=== PATIENT | female | born 1990 | race Caucasian/White ===

== ENCOUNTER 2019-07-19 11:22 | Outpatient (CLI) | payer MEDICAID, SELFPAY ==
--- NOTE | 2019-07-19 | US_ITS ---
WS: [id number] OB ultrasound, 07/19/2019 Clinical Data: SUBSEQUENT IN SECOND TRIMESTER Comparison: OB ultrasound, 05/10/2019. Findings: There is a single intrauterine in the vertex presentation and moved from a transverse lie.. The placenta is Anterior and grade 1. There is a normal amount of amnionic fluid measuring 15.96 cm. . The heart rate is 141 beats per minute. Measurements of growth and development: BPD: 7.6 cm HC: 27.7 cm AC: 27.0 cm FL: 5.9 cm The estimated weight is 1644 g or approximately 3 lbs. 10 oz. The estimated gestational age is 30 weeks 4 days with an CAROLYN of approximately 09/23/2019.. anatomy shows no cyst of the choroid plexus which was seen on the left lateral ventricle on the previous exam. US/[place] [id number] Impression: 1. Single intrauterine in vertex presentation. 2. Estimated gestational age 30 weeks 4 days with an CAROLYN of 09/23/2019. 3. heart rate 141 beats per minute.
== END 2019-07-19 11:23 | disposition home or self-care (01) ==
LOC: RADOUTREAD 07-20 07:14
PROVIDERS: Family Provider Nurse Practitioner Family; Visit Provider Family Medicine
DX: Z34.82 Encounter for supervision of other normal pregnancy, second trimester (principal)

== ENCOUNTER 2019-08-26 06:51 | Inpatient (IN) | payer MEDICAID, SELFPAY ==
[2019-08-26] VITALS (27 sets, daily range): BP systolic 122–186; BP diastolic 65–102; PULSE 65–105; RESP 16–20; TEMP 36.6–37.1; O2SAT 96–100; BMI 41.3
--- NOTE | 2019-08-26 07:40 | ANES.PREANE2 ---
Pre-Anesthetic Assessment Pre-Anesthetic Assessment: Height/Weight: Height 1.6 m Weight 105.687 kg Pulse BP 98 158/93 08/26/19 07:34 08/26/19 07:34 Preop Diagnosis: Breach presentation Proposed Procedure: C section Familial anesthetic complications: Mom slow to wake up Was Beta Froy taken within 24 hours: N/A Last Intake: 22:00 Social: Social History: Tobacco and No alcohol Packs per day: 1/2 ppd Pack years: 15 Exam: Pre-Anes Outpt Exam: alert, oriented x 3, clear to auscultation bilaterally and regular rate & rhythm Airway: Submandibular: WNL Cervical ROM: WNL MP: 1 Dentition: False and Other (tongue removed) Pulmonary: Pulmonary: Sleep apnea (CPAP) CV/HEM: CV/HEM: None reported : : None reported Hepatic: Hepatic: None reported GI: GI: GERD Comments: with Metabolic: Metabolic: Morbid obesity Musc/skel: Musc/skel: None reported Neuropsych: Neuropsych: GAUTHIER Anesthetic Plan: ASA status: 2 Anesthesia: Anesthesia Evaluation and Regional (specify below) (SAB) Risk of > 500 ml blood loss (7ml/kg in children): Yes, adequate IV access and fluids planned PFSH Anesthesia Female Reproductive History: : 3 Data Anesthesia Cardiac Studies: No Data to Display
--- NOTE | 2019-08-26 07:42 | PM.OBGYHP ---
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 Her has been unremarkable overall. She does have a history of a previous lower transverse section due to breech position. Present Details : 3 Para: 2 Review of Systems General: Reports: 10 or more systems reviewed and unremarkable except in HPI and below Const: Reports: fatigue; Denies: fever Eyes: Denies: change in vision Card: Denies: chest pain Musc: Reports: back pain Juan Carlos/Lymph: Denies: easy bruising Medications/Allergies Home Medications Medication Instructions Recorded Confirmed Last Taken Type PNV cmb#95-ferrous fumarate-FA 1 tab PO DAILY 08/26/19 08/26/19 08/25/19 08:00 History [] Allergies Allergy/AdvReac Type Severity Reaction Status Date / Time codeine Allergy ADR-Halluci Verified 08/26/19 07:12 nating meperidine [From Demerol] Allergy ADR/ALGY-Hy Verified 08/26/19 07:12 potension Vitals/I&O/Wt Last Vital Signs Pulse 98 08/26/19 07:34 BP 158/93 08/26/19 07:34 Weight last 48 hrs Weight 233 lb Physical Exam Const: COMMON NORMALS: oriented x3 and alert HENMT: COMMON NORMALS: moist oral mucous membranes HEAD & SCALP: normal to inspection Chest: COMMONS NORMALS: inspection of chest normal Resp: COMMON NORMALS: clear to auscultation bilaterally AUSCULTATION: clear to auscultation bilaterally Cardio: COMMON NORMALS: regular rate and regular rhythm RATE: regular rate RHYTHM: regular rhythm GI: INSPECTION: Yes normal to inspection and Yes other (Gravid) Extremity: COMMON NORMALS: normal to inspection GENERAL: Yes edema (Trace) Neuro: COMMON NORMALS: oriented x3, moves all extremities and no sensory deficits noted SENSORIUM/ORIENTATION: Yes alert Psych: COMMON NORMALS: mental status grossly normal Skin: COMMON NORMALS: no rashes or lesions noted GENERAL SKIN EXAM: no rashes or lesions noted A&P Assessment and plan (1) Transverse lie of fetus: Status: Acute Code(s): O32.2XX0 - Maternal care for transverse and oblique lie, not applicable or unspecified (2) History of : Status: Acute Code(s): Z98.891 - History of uterine scar from previous surgery (3) 34 weeks gestation of : Due to the transverse lie of the we will proceed with a . I discussed the risks of the including the risk of bleeding, infection, and damage to intra-abdominal organs. Patient acknowledges those risks and wished to proceed. Status: Acute Code(s): Z3A.34 - 34 weeks gestation of Attestations Medical Necessity Statement*: I anticipate routine and post care. Coding Level of Care Code Acute [facility] for [facility] Matt Diagnoses Transverse lie of fetus O32.2XX0 History of Z98.891 34 weeks gestation of Z3A.34
[2019-08-26] MEDS: lactated ringers 1,000 ML 999 ML IV (07:43)
[2019-08-26] MEDS: ampicillin 2,000 MG in sodium chloride 0.9% (plus) 50 ML 100 MG IV (07:50)
[2019-08-26] MEDS: famotidine 20 mg/2 mL INJ IVP (07:53)
[2019-08-26] MEDS: metoclopramide 5 mg/mL SDV 2 mL 10 MG IVP (07:53)
[2019-08-26] MEDS: citric acid-sodium citrate 30 mL UDC PO (07:54)
[2019-08-26 08:01] LABS: Basophils % 0.3 %; Eosinophils # 0.2 10^3/uL (0.0-0.8); Eosinophils % 1.2 %; Hematocrit 37.2 % (37.0-47.0); Hemoglobin 12.6 g/dL (11.5-15.3); Lymphocytes # 2.1 10^3/uL (0.8-4.8); Lymphocytes % 14.7 %; Mean Corpuscular HGB Conc 33.9 g/dL (30.0-36.0); Mean Corpuscular Hemoglobin 29.2 pg (28.0-34.0); Mean Corpuscular Volume 86.1 fL (81-99); Mean Platelet Volume 10.1 fL (7.4-10.4); Monocytes # 0.8 10^3/uL (0.2-0.9); Monocytes % 5.3 %; Neutrophils # 11.3 10^3/uL (1.8-7.7); Neutrophils % 77.7 %; Nucleated Red Blood Cells % 0.2 %; Platelet Count 172 10^3/cmm (130-400); Red Blood Count 4.32 10^6/uL (4.1-5.3); Red Cell Distribution Width 13.2 % (12.1-15.1); White Blood Count 14.5 10^3/uL (4.0-10.0)
[2019-08-26 08:30] LABS: Alanine Aminotransferase 8 U/L (0-33); Alkaline Phosphatase 146 IU/L (35-105); Anion Gap 17.9 (5-19); Aspartate Amino Transferase 14 U/L (0-32); Blood Urea Nitrogen 8 mg/dL (6-20); Calcium 9.7 mg/dL (8.5-10.5); Carbon Dioxide 20 mmol/L (22-29); Chloride 101 mmol/L (98-107); Globulin 3.6 g/dL (1.3-4.6); Glomerular Filtration Rate 117.4 mL/min (90-130); Glucose 92 mg/dL (65-115); Potassium 3.9 mmol/L (3.5-5.1); Sodium 135 mmol/L (136-145); Total Bilirubin 0.2 mg/dL (0.15-1.2); Total Protein 6.6 g/dL (6.6-8.7); Uric Acid 7.2 mg/dL (2.4-5.7)
[2019-08-26 08:52] LABS: Add Urine Microscopic? YES; Bilirubin Urine Neg (NEGATIVE); Blood Urine Trace (Negative); Glucose Urine UA Norm (Normal); Ketones Urine Negative (Negative); Leukocyte Esterase Urine Negative (Negative); Nitrate Urine Negative (Negative); Protein Urine Neg (Negative); Specific Gravity, Urine 1.005 (1.005-1.030); Urine Appearance Clear (CLEAR); Urine Color Yellow (Yellow); Urobilinogen Urine Norm (Negative); pH Urine 5 (5-7)
[2019-08-26 09:01] LABS: Add Urine Culture? No; Bacteria Urine TRACE; RBC Urine 0-4 /hpf (0-2); Squamous Epithelial Cell Urine 0-4 (0-5)
[2019-08-26 09:05] LABS: Urine Creatinine 33 mg/dL (28-217); Urine Protein Random 6 mg/dL
[2019-08-26 09:08] LABS: UPRO/UCREAT Ratio 0.18 mg/mg CR
--- NOTE | 2019-08-26 09:47 | P.OP_ITS ---
Operative Report Date of procedure: August 26, 2019 Pre-op Diagnosis: Transverse presentation Post-op diagnosis: same Procedure Done: Repeat lower transverse section Specimens removed/disposition: Male infant weight 5 pounds 2 ounces Apgars 5 7 and 9 Surgeon: Ritchie Ferreira Anesthesia: Other (Spinal) Estimated blood loss (mL): 400 Condition: stable Disposition: floor (OB) Procedure: The patient was brought back to the operating room where she was prepped and draped in usual sterile fashion. Anesthesia was found to be adequate. A lower transverse skin incision was then made with a #10 blade. I then dissected down to the underlying subcutaneous tissue until arriving at the prerectal fascia. The fascia was then nicked with the scalpel bilaterally. The fascial incisions were then carried laterally with Heath scissors. Attention was then turned to the superior aspect of the incision which was grasped with kochers and tented up away from the underlying rectus abdominis muscles. The muscles were then dissected away from the fascia manually, and later with Heath scissors. Attention was then turned to the inferior aspect of the incision, and the fascia was dissected away from the underlying muscle in similar fashion. The rectus abdominis muscles were then spread manually. The peritoneum was entered manually. Excellent visualization of the uterus was noted. A lower transverse uterine incision was then made with a #10 blade. Upon arriving at the intrauterine cavity, the uterine incision was then extended manually. The was noted to be in vertex position. The baby was delivered without difficulty. After delivery of the head, the mouth and nose were suctioned at the site of the incision. There was no meconium. There was no nuchal cord. The remainder of the body was then delivered and placed on the abdomen. The cord was cut and clamped. The baby was then handed to the waiting nurse. The placenta was removed intact. The uterus was externalized. The intrauterine ca vity was cleansed of any remaining debris. The uterine incision was reapproximated in 2 layers. The first layer was performed with 0 Vicryl in a running locked stitch. The second layer was an imbricating stitch also using 0 Vicryl. The uterus was replaced into the abdomen. The peritoneum was then irrigated with warm saline. I reexamined the uterine incision and found it to be hemostatic. The rectus abdominis muscles were then reapproximated using 0 Vicryl in a running stitch. The fascia was then reapproximated using 0 Vicryl in running stitch. The skin was reapproximated using 4-0 Vicryl in a running subcutaneous stitch. Steri-Strips were placed. A sterile dressing was placed. All counts were correct x2. Both the mother and baby were in stable condition.
[2019-08-26 18:32] LABS: Hematocrit 33.6 % (37.0-47.0); Hemoglobin 11.2 g/dL (11.5-15.3); Mean Corpuscular HGB Conc 33.3 g/dL (30.0-36.0); Mean Corpuscular Hemoglobin 29.3 pg (28.0-34.0); Mean Platelet Volume 10.3 fL (7.4-10.4); Platelet Count 154 10^3/cmm (130-400); Red Blood Count 3.82 10^6/uL (4.1-5.3); Red Cell Distribution Width 13.4 % (12.1-15.1); White Blood Count 18.4 10^3/uL (4.0-10.0)
[2019-08-26] MEDS: lanolin oint 7 gm 1 APPLIC TOPICAL (21:40)
[2019-08-27 03:45] VITALS: BP 123/77; PULSE 84; RESP 15; TEMP 36.7; O2SAT 97
[2019-08-27] MEDS: acetaminophen 325 mg Tablet 650 MG PO (04:14)
--- NOTE | 2019-08-27 06:57 | P.DS_ITS ---
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 The baby was found to be in transverse position. We proceeded with a section. Her course has been unremarkable. Her bleeding has been scant. She has had urine output. She has passed gas. She has had a bowel movement. She has tolerated a regular diet. Information Peripartum Data: Infant Delivery Method: Section Physical Exam Narrative: EXAM NARRATIVE: She is in no acute distress Lungs are clear auscultation bilaterally Her heart has a regular rate and rhythm Her fundus is below the umbilicus and firm Her dressing is clean, dry and intact Her extremities have trace edema Urinary Catheter Management^: Riddle: Cath Placed During This Visit: yes, but has since been removed by the nurse Reason for Continuing Indwelling Catheter: Not indwelling catheter Date Urinary Catheter Removed: 08/26/19 Time Urinary Catheter Discontinued: 16:40 Discharge Data Data Completed and Pending: Labs from last 24 hours 08/26/19 08/26/19 08/26/19 18:05 08:27 08:27 WBC 18.4 H RBC 3.82 L Hgb 11.2 L Hct 33.6 L MCV 88.0 MCH 29.3 MCHC 33.3 RDW 13.4 Plt Count 154 MPV 10.3 Neut % (Auto) Lymph % (Auto) Kenton % (Auto) Eos % (Auto) Baso % (Auto) Neut # (Auto) Lymph # (Auto) Kenton # (Auto) Eos # (Auto) Baso # (Auto) Nucleated RBC % (a uto) Nucleated RBCs # Sodium Potassium Chloride Carbon Dioxide Anion Gap BUN Creatinine GFR Calculation Glucose Uric Acid Calcium Total Bilirubin AST ALT Alkaline Phosphata se Total Protein Albumin Globulin Urine Color Yellow Urine Appearance Clear Urine pH 5 Ur Specific Gravit y 1.005 Urine Protein Neg Urine Glucose (UA) Norm Urine Ketones Negative Urine Occult Blood Trace H Urine Nitrate Negative Urine Bilirubin Neg Urine Urobilinogen Norm Ur Leukocyte Cecilia ase Negative Urine RBC 0-4 H Urine WBC None Ur Squamous Epith Cells 0-4 H Amorphous Sediment Not Reportable Urine Bacteria Trace U Random Total Pro tein 6 Urine Creatinine 33 Protein/Creatinin Ratio 0.18 08/26/19 08/26/19 07:47 07:47 WBC 14.5 H RBC 4.32 Hgb 12.6 Hct 37.2 MCV 86.1 MCH 29.2 MCHC 33.9 RDW 13.2 Plt Count 172 MPV 10.1 Neut % (Auto) 77.7 Lymph % (Auto) 14.7 Kenton % (Auto) 5.3 Eos % (Auto) 1.2 Baso % (Auto) 0.3 Neut # (Auto) 11.3 H Lymph # (Auto) 2.1 Kenton # (Auto) 0.8 Eos # (Auto) 0.2 Baso # (Auto) 0.0 Nucleated RBC % (a uto) 0.2 Nucleated RBCs # 0.0 Sodium 135 L Potassium 3.9 Chloride 101 Carbon Dioxide 20 L Anion Gap 17.9 BUN 8 Creatinine 0.6 GFR Calculation 117.4 Glucose 92 Uric Acid 7.2 H Calcium 9.7 Total Bilirubin 0.2 AST 14 ALT 8 Alkaline Phosphata se 146 H Total Protein 6.6 Albumin 3.0 L Globulin 3.6 Urine Color Urine Appearance Urine pH Ur Specific Gravit y Urine Protein Urine Glucose (UA) Urine Ketones Urine Occult Blood Urine Nitrate Urine Bilirubin Urine Urobilinogen Ur Leukocyte Cecilia ase Urine RBC Urine WBC Ur Squamous Epith Cells Amorphous Sediment Urine Bacteria U Random Total Pro tein Urine Creatinine Protein/Creatinin Ratio Vitals: Last Vital Signs Temp 98.0 F 08/27/19 03:45 Pulse 84 08/27/19 03:45 Resp 15 08/27/19 03:45 BP 123/77 08/27/19 03:45 Pulse Ox 97 08/27/19 03:45 Discharge Plan Discharge Patient Disposition: Home, Self-Care Condition: Stable Prescriptions: New ibuprofen 800 mg Tablet 800 mg PO TID Qty: 30 RF: 0 oxycodone-acetaminophen 5-325 mg Tablet 1 - 2 tab PO Q6H PRN (Reason: Moderate To Severe Pain) Qty: 20 RF: 0 Continued 28 mg iron- 800 mcg Tablet 1 tab PO DAILY RF: 0 Discharge Orders: Discharge Order (Routine); Ordered 08/27/19 Ordered By: Ritchie Ferreira Referrals: Ritchie Ferreira MD [Physician] - 7-10 days Discharge Diet: Regular Discharge Activity: Limit activity as instructed 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
[2019-08-27] MEDS: prenatal vitamin Capsule 1 CAP PO (08:44)
[2019-08-27] MEDS: docusate sodium 100 mg Capsule PO (08:44)
[2019-08-27 10:00] VITALS: BP 138/88; PULSE 106; RESP 18; TEMP 36.9; O2SAT 98
[2019-08-27 11:00] VITALS: BP 110/68; PULSE 100; RESP 18; TEMP 36.8; O2SAT 98
[2019-08-27 11:14] VITALS: BP 110/68; PULSE 100; RESP 18; TEMP 36.8; O2SAT 98
== END 2019-08-27 11:18 | disposition home or self-care (01) | DRG 788 ==
LOC: OPOB 06:59 → OBGYN 07:34
PROVIDERS: Admitting Provider Family Medicine; Family Provider Nurse Practitioner Family; Visit Provider Family Medicine
PROC: 10D00Z1 Extraction of Products of Conception, Low, Open Approach (ICD-10-PCS; CPT 59514; principal; 2019-08-26 08:10)
DX: O42.013 Preterm premature rupture of membranes, onset of labor within 24 hours of rupture, third trimester (principal); O34.211 Maternal care for low transverse scar from previous cesarean delivery; N85.8 Other specified noninflammatory disorders of uterus; Z37.0 Single live birth; O69.81X0 Labor and delivery complicated by cord around neck, without compression, not applicable or unspecified; Z3A.34 34 weeks gestation of pregnancy; O64.1XX0 Obstructed labor due to breech presentation, not applicable or unspecified
CPT/HCPCS: 12345; 36415; 51702; 59025; 59409; 80053; 81001; 81003; 82570; 83986; 84156; 84550; 85025; 85027; 96374; 96375; 98960; 99211; J0290; J0690; J1885; J2274; J2590; J2765; J3490

== ENCOUNTER 2019-12-06 20:11 | Emergency (ER) | payer MEDICAID, SELFPAY ==
[2019-12-06 20:17] VITALS: BP 138/105; PULSE 100; RESP 18; TEMP 36.9; O2SAT 98; BMI 38.0
[2019-12-06] MEDS: ondansetron 2 mg/ML SDV 2 mL 4 MG IVP ×2 (20:30→22:39)
[2019-12-06] MEDS: sodium chloride 0.9% 1,000 ML 999 ML IV (20:30)
[2019-12-06 20:53] LABS: Basophils # 0.1 10^3/uL (0.0-0.1); Basophils % 0.4 %; Eosinophils # 0.3 10^3/uL (0.0-0.8); Eosinophils % 2.3 %; Hematocrit 40.3 % (37.0-47.0); Hemoglobin 13.5 g/dL (11.5-15.3); Lymphocytes # 2.8 10^3/uL (0.8-4.8); Lymphocytes % 23.9 %; Mean Corpuscular HGB Conc 33.5 g/dL (30.0-36.0); Mean Corpuscular Hemoglobin 28.2 pg (28.0-34.0); Mean Corpuscular Volume 84.3 fL (81-99); Mean Platelet Volume 9.2 fL (7.4-10.4); Monocytes # 0.6 10^3/uL (0.2-0.9); Neutrophils # 7.9 10^3/uL (1.8-7.7); Neutrophils % 68.1 %; Nucleated Red Blood Cells % 0 %; Platelet Count 292 10^3/cmm (130-400); Red Blood Count 4.78 10^6/uL (4.1-5.3); White Blood Count 11.5 10^3/uL (4.0-10.0)
[2019-12-06 21:02] LABS: HCG, Serum Qual Negative (Negative)
[2019-12-06 21:04] LABS: Alanine Aminotransferase 22 U/L (0-33); Albumin Level 4.3 g/dL (3.5-5.2); Alkaline Phosphatase 122 IU/L (35-105); Anion Gap 16.2 (5-19); Aspartate Amino Transferase 17 U/L (0-32); Blood Urea Nitrogen 8 mg/dL (6-20); Calcium 9.3 mg/dL (8.5-10.5); Carbon Dioxide 25 mmol/L (22-29); Chloride 101 mmol/L (98-107); Globulin 2.5 g/dL (1.3-4.6); Glomerular Filtration Rate 98.3 mL/min (90-130); Glucose 102 mg/dL (65-115); Lipase 23 U/L (13-60); Osmolality Calculated 282 mOsm/kg (285-295); Potassium 4.2 mmol/L (3.5-5.1); Sodium 138 mmol/L (136-145); Total Bilirubin 0.2 mg/dL (0.15-1.2); Total Protein 6.8 g/dL (6.6-8.7)
--- NOTE | 2019-12-06 21:30 | ED_ITS ---
HPI - Nausea/Vomiting/Diarrhea General: Chief complaint: Nausea/Vomiting/Diarrhea Stated complaint: ALLERGIC REACTION Time Seen by Provider: 12/06/19 20:22 History of Present Illness: HPI Narrative: Emely is a very nice 29-year-old female who comes in complaining of vomiting and diarrhea. She states she ate some shrimp and 30 minutes to an hour after she ate them she developed the sudden need to have a bowel movement. She had loose watery stool but then developed significant vomiting after. She has had treat multiple times in the past and never had any other type of reaction. She denies any abdominal pain. She denies throat tightening, shortness of breath, hives, itching or any other type of allergic reaction type symptoms. She states she is vomited so many times that she feels weak and dehydrated. She says other than that at this time she only has mild nausea and does not feel as though she has anything left to vomit. Associated nausea: Yes Associated symtoms: Reports nausea; Denies altered mental status, change in vision, chest pain, diaphoresis, dizziness, dysuria, fatigue, headache(s), malaise, palpitations or syncope Review of Systems Const: Denies: fever(s), chills, body aches, fatigue, malaise, night sweats or diaphoresis Eyes: Denies: change in vision, blurry vision or blind spots ENMT: Denies: throat pain, odynophagia, hoarseness, ear or mastoid pain, ear discharge, change in hearing or nasal discharge Card: Denies: chest pain, palpitations, irregular heart rhythm, lightheadedness, syncope, pre-syncope, dyspnea on exertion or orthopnea Resp: Denies: dyspnea, productive cough, non-productive cough, wheezing, hemoptysis or chest congestion GI: Reports: nausea, vomiting and diarrhea; Denies: abdominal pain, hematemesis, coffee ground emesis, heartburn, constipation, GI cramping, hematochezia or melena : Denies: flank pain, dysuria, urinary frequency, urinary urgency, oliguria, urinary incontinence or hematuria Musc: Denies: neck pain, back pain, extremity pain, extremity swelling, joint pain, joint swelling, joint redness, joint warmth or joint stiffness Skin/Breast: Denies: rash, pruritus, erythema, skin tenderness or jaundice Neuro: Denies: headache(s), numbness in extremities, weakness in extremities, sensory changes, lack of coordination, difficulty walking, dizziness, vertigo, confusion or Slurred speech present Endo: Denies: polyuria, polydipsia, tired all the time, cold intolerance, excessive sweating, flushing, hot flashes or heat intolerance Juan Carlos/Lymph: Denies: easy bruising, easy bleeding, petechiae, purpura or enlarged lymph nodes All/Imm: Denies: urticaria, throat swelling, tongue swelling, facial swelling or acute wheezing PFSH ED PFSH: Medical History No pertinent past medical history Surgical History History of Social History Smoking and tobacco status: current every day smoker Female Reproductive History: Date of last menstrual period: 11/29/19 Physical Exam Const: COMMON NORMALS: no acute distress, patient oriented x3, no limitations, healthy appearing and well nourished EXAM LIMITATIONS: no altered mental status GENERAL APPEARANCE: cooperative, well kempt and well developed HENMT: COMMON NORMALS: normocephalic, atraumatic, hearing grossly normal bilaterally, external ears normal, EAC's normal, Normal external nose present and moist oral mucous membranes HEAD & SCALP: normal to inspection, normocephalic and atraumatic FACE & SINUS: normal facial exam and face symmetric NOSE: Normal external nose present and Normal nares present EXTERNAL EAR: Yes external ears normal EXTERNAL AUDITORY CANAL: EAC's normal MOUTH: Normal oral and palatal mucosa present, lip normal and tongue normal Eye: COMMON NORMALS: Equal, round and reactive pupils present, EOMs intact bilaterally, conjunctivae normal and no scleral icterus GENERAL EYE: appearance normal, both eyes and all related structures ALIGNMENT: Yes alignment normal PERIORBITAL: periorbital findings normal EYELID: eyelids normal CONJUNCTIVA: Yes conjunctivae normal SCLERA: sclerae normal PUPIL: Yes Equal, round and reactive pupils present Neck/C-Spine: COMMON NORMALS: full ROM, no lymphadenopathy, supple, no meningeal signs and no JVD GENERAL: Yes normal visual inspection and Yes trachea midline CERVICAL SPINE: Yes cervical ROM normal Chest: COMMONS NORMALS: normal inspection of the chest and normal palpation of entire chest wall Resp: COMMON NORMALS: normal respiratory effort, No retractions, No use of accessory muscles and clear to auscultation bilaterally EFFORT & INSPECTION: Yes able to speak in complete sentences AUSCULTATION: clear to auscultation bilaterally, no crackles, no rales, no rhonchi and no wheezes Cardio: COMMON NORMALS: no JVD, regular rate, regular rhythm, S1 normal heart sound present, S2 normal heart sound present, No gallops present (Cardio), No clicks present (Cardio), No murmurs present (Cardio) and No rub (Cardio) RATE: regular rate RHYTHM: regular rhythm HEART SOUNDS: S1 normal heart sound present, S2 normal heart sound present, no click, no gallops, no murmurs and no rubs GI: COMMON NORMALS: Soft to palpation, non-tender, No hepatosplenomegaly present and no masses PALPATION: Yes Soft to palpation, No Tenderness to palpation present (GI), No Guarding due to palpation present (GI), No Rigid due to palpation, Yes No hepatosplenomegaly present, No Hernia present, No Palpable mass present and No Pulsatile mass present : COMMON NORMALS: Yes no CVA tenderness BLADDER/KIDNEY EXAM: Yes no CVA tenderness EXTERNAL FEMALE EXAM: No Hernia present Back/Pelvis: COMMON NORMALS: no CVA tenderness, thoracic and lumbar spine normal to inspection, no thoracic nor lumbar tenderness and thoraco-lumbar ROM normal Extremity: COMMON NORMALS: normal to inspection, full ROM, capillary refill normal, no joint enlargement, no clubbing, cyanosis or edema and no calf tenderness Neuro: COMMON NORMALS: patient oriented x3, CN's II-XII intact bilaterally, moves all extremities, no focal motor deficits and no sensory deficits noted MENINGEAL SIGNS: Yes no meningeal signs SPEECH: speech normal Psych: COMMON NORMALS: mental status grossly normal, Normal thought process present, cooperative, normal affect, speech normal and activity/motor behavior normal APPEARANCE: Yes well kempt SPEECH: Yes normal speech THOUGHT PROCESS: Normal thought process present Skin: COMMON NORMALS: no rashes or lesions noted, turgor normal, no jaundice, no petechiae and no mottling GENERAL SKIN EXAM: no rashes or lesions noted and turgor normal Course Vital Signs: Vital signs: Vital Signs Temperature 98.4 F 05/25/20 20:17 Pulse Rate 100 12/06/19 20:17 Respiratory Rate 18 12/06/19 20:17 Blood Pressure 138/105 12/06/19 20:17 Pulse Oximetry 98 12/06/19 20:17 MDM - Nausea/Vomiting/Diarrhea MDM Narrative: Medical decision making narrative: Arrival -David is a 29-year-old female who comes in with stable vital signs with report of vomiting and diarrhea after eating shrimp. Differential is considerable including anaphylaxis, food poisoning, gastroenteritis, appendicitis, bowel obstruction, UTI among many others. Will initiate therapy at controlling her symptoms and rehydration. Clinically at this time the patient has no throat tightening, no shortness of breath and no hives or itching. I think atypical anaphylaxis is unlikely but we will monitor to ensure there is no change at this. Discharge -the patient is feeling tremendously better after IV fluids and nausea medicine. She is never developed any shortness of breath, no hives, no itching, no throat tightening or anything else that would resemble acute anaphylactic reaction. I feel this more likely food poisoning or some type of gastroenteritis. She has no abdominal pain her abdomen is soft I do not think imaging of her abdomen is necessary at this time. I think the most likely diagnosis at this time is food poisoning and is we have treated this and her symptoms are better I believe she is safe for discharge. The patient understands that she will need to be cautious and trying shrimp again in the future but at this time she tends to concur with me since she had no other symptoms she believes the food was probably bad and that is what caused her symptoms. We did review at length the signs and symptoms for which to return to the ER and she states she understands them and will watch for them. She will return if she develops any other problems. Lab Data: Attestation: I reviewed the patient's lab results. Labs: Lab Results 12/06/19 12/06/19 12/06/19 Range/Units 20:30 20:30 20:30 WBC 11.5 H (4.0-10.0) 10^3/ uL RBC 4.78 (4.1-5.3) 10^6/u L Hgb 13.5 (11.5-15.3) g/dL Hct 40.3 (37.0-47.0) % MCV 84.3 (81-99) fL MCH 28.2 (28.0-34.0) pg MCHC 33.5 (30.0-36.0) g/dL RDW 13.0 (12.1-15.1) % Plt Count 292 (130-400) 10^3/c mm MPV 9.2 (7.4-10.4) fL Neut % (Auto) 68.1 % Lymph % (Auto) 23.9 % Bingham % (Auto) 5.0 % Eos % (Auto) 2.3 % Baso % (Auto) 0.4 % Neut # (Auto) 7.9 H (1.8-7.7) 10^3/u L Lymph # (Auto) 2.8 (0.8-4.8) 10^3/u L Bingham # (Auto) 0.6 (0.2-0.9) 10^3/u L Eos # (Auto) 0.3 (0.0-0.8) 10^3/u L Baso # (Auto) 0.1 (0.0-0.1) 10^3/u L Nucleated RBC % (a uto) 0 % Nucleated RBCs # 0.0 /100WBC Sodium 138 (136-145) mmol/L Potassium 4.2 (3.5-5.1) mmol/L Chloride 101 (98-107) mmol/L Carbon Dioxide 25 (22-29) mmol/L Anion Gap 16.2 (5-19) BUN 8 (6-20) mg/dL Creatinine 0.7 (0.5-0.9) mg/dL GFR Calculation 98.3 (90-130) mL/min Glucose 102 (65-115) mg/dL Calculated Osmolal ity 282 L (285-295) mOsm/k g Calcium 9.3 (8.5-10.5) mg/dL Total Bilirubin 0.2 (0.15-1.2) mg/dL AST 17 (0-32) U/L ALT 22 (0-33) U/L Alkaline Phosphata se 122 H (35-105) IU/L Total Protein 6.8 (6.6-8.7) g/dL Albumin 4.3 (3.5-5.2) g/dL Globulin 2.5 (1.3-4.6) g/dL Lipase 23 (13-60) U/L HCG, Qual Negative (Negative) Urine Color (Yellow) Urine Appearance (CLEAR) Urine pH (5-7) Ur Specific Gravit y (1.005-1.030) Urine Protein (Negative) Urine Glucose (UA) (Normal) Urine Ketones (Negative) Urine Blood (Negative) Urine Nitrate (Negative) Urine Bilirubin (NEGATIVE) Urine Urobilinogen (Negative) mg/dL Ur Leukocyte Cecilia ase (Negative) 12/06/19 Range/Units 21:57 WBC (4.0-10.0) 10^3/ uL RBC (4.1-5.3) 10^6/u L Hgb (11.5-15.3) g/dL Hct (37.0-47.0) % MCV (81-99) fL MCH (28.0-34.0) pg MCHC (30.0-36.0) g/dL RDW (12.1-15.1) % Plt Count (130-400) 10^3/c mm MPV (7.4-10.4) fL Neut % (Auto) % Lymph % (Auto) % Bingham % (Auto) % Eos % (Auto) % Baso % (Auto) % Neut # (Auto) (1.8-7.7) 10^3/u L Lymph # (Auto) (0.8-4.8) 10^3/u L Bingham # (Auto) (0.2-0.9) 10^3/u L Eos # (Auto) (0.0-0.8) 10^3/u L Baso # (Auto) (0.0-0.1) 10^3/u L Nucleated RBC % (a uto) % Nucleated RBCs # /100WBC Sodium (136-145) mmol/L Potassium (3.5-5.1) mmol/L Chloride (98-107) mmol/L Carbon Dioxide (22-29) mmol/L Anion Gap (5-19) BUN (6-20) mg/dL Creatinine (0.5-0.9) mg/dL GFR Calculation (90-130) mL/min Glucose (65-115) mg/dL Calculated Osmolal ity (285-295) mOsm/k g Calcium (8.5-10.5) mg/dL Total Bilirubin (0.15-1.2) mg/dL AST (0-32) U/L ALT (0-33) U/L Alkaline Phosphata se (35-105) IU/L Total Protein (6.6-8.7) g/dL Albumin (3.5-5.2) g/dL Globulin (1.3-4.6) g/dL Lipase (13-60) U/L HCG, Qual (Negative) Urine Color Yellow (Yellow) Urine Appearance Clear (CLEAR) Urine pH 5 (5-7) Ur Specific Gravit y 1.015 (1.005-1.030) Urine Protein Neg (Negative) Urine Glucose (UA) Norm (Normal) Urine Ketones Negative (Negative) Urine Blood Neg (Negative) Urine Nitrate Negative (Negative) Urine Bilirubin Neg (NEGATIVE) Urine Urobilinogen Norm (Negative) mg/dL Ur Leukocyte Cecilia ase Negative (Negative) Discharge Plan Discharge Patient Disposition: Home, Self-Care Clinical Impression: Food poisoning Condition: Stable Prescriptions: New Zofran 4 mg tablet 4 mg PO Q6H PRN (Reason: nausea and vomiting) Qty: 20 RF: 0 Discharge Orders: Discharge Order (Routine); Ordered 12/06/19 Ordered By: Jaylin Boles Referrals: Melissa Jiang FNP [Primary Care Provider] - 1-3 days Discharge Diet: Advance as tolerated and Clear Liquid Discharge Activity: Increase activity as tolerated Patient Instructions: Gastroenteritis (ED), Acute Nausea and Vomiting (ED), Food Poisoning (ED) Activity Restrictions/Additional Instructions: Please return to the ER immediately for any of the signs or symptoms listed on your discharge instruction sheets, worsening/changing of your symptoms, you are not getting better as quickly as expected, or for ANY other cause or concerns. Coding Level of Care Code ED Ski Tow Operator for Jimmy Fwd Exam Comprehensive
[2019-12-06 22:13] LABS: Add Urine Microscopic? NO
[2019-12-06 22:15] LABS: Bilirubin Urine Neg (NEGATIVE); Blood Urine Neg (Negative); Glucose Urine UA Norm (Normal); Ketones Urine Negative (Negative); Leukocyte Esterase Urine Negative (Negative); Nitrate Urine Negative (Negative); Protein Urine Neg (Negative); Specific Gravity, Urine 1.015 (1.005-1.030); Urine Appearance Clear (CLEAR); Urine Color Yellow (Yellow); Urobilinogen Urine Norm (Negative); pH Urine 5 (5-7)
[2019-12-06 22:40] VITALS: BP 133/84; PULSE 91; RESP 18; O2SAT 100
== END 2019-12-06 22:44 | disposition home or self-care (01) ==
PROVIDERS: Emergency Provider Emergency Medicine; PCP Nurse Practitioner Family
DX: A05.9 Bacterial foodborne intoxication, unspecified (principal); F17.210 Nicotine dependence, cigarettes, uncomplicated
CPT/HCPCS: 12345; 36415; 80053; 81003; 83690; 84703; 85025; 96360; 96361; 96374; 96375; 96376; 99283; J2405; J7030

== ENCOUNTER 2020-05-18 18:28 | Emergency (ER) | payer MEDICAID, SELFPAY ==
[2020-05-18 18:36] VITALS: BP 134/96; PULSE 107; RESP 18; TEMP 36.5; O2SAT 98
--- NOTE | 2020-05-18 19:10 | US_ITS ---
WS: [id number] ULTRASOUND ABDOMEN LIMITED CLINICAL INFORMATION: Abdominal Pain COMPARISON: None. FINDINGS: Liver Size: Enlarged Craniocaudal length: 18.5 cm. Echogenicity: Normal. Surface nodularity: None. Mass (size and location): None. Bile ducts Intrahepatic ducts: Normal. Common bile duct diameter: 0.3 cm. Gallbladder Normal. Gallstones: None. Gallbladder sludge: None. Gallbladder wall thickening: None. Pericholecystic fluid: None. Sonographic Lara sign: Absent. Pancreas Normal as visualized. Right kidney: Normal. Hydronephrosis: None. Size: 11.4 cm x 5.8 cm x 3.5 cm. Abdominal aorta and IVC Visualized portions are normal. Ascites: None. US/US gall bladder [id number] IMPRESSION: 1. Hepatomegaly. 2. Normal gallbladder. Normal common bile duct. 3. No hydronephrosis in right kidney.
--- NOTE | 2020-05-18 19:11 | W.ED.ABDPA2 ---
HPI - Abdominal Pain General: Chief Complaint: Abdominal Pain Stated Complaint: RUQ pain Time Seen by Provider: 05/18/20 19:02 Source: patient Mode of arrival: ambulatory Limitations: no limitations History of Present Illness: HPI narrative: Emely is a very nice 29-year-old female who comes in complaining of right upper quadrant abdominal pain. She states the pain is been going on since last Friday and has been intermittent. Today though she states the pain is been steady throughout the day. She has had associated nausea and vomiting that is been nonbloody. She has diarrhea which she describes as fatty stools without blood. Denies any fever. She has no urinary symptoms such as urinary frequency/urgency or dysuria. She denies any vaginal discharge or bleeding. She states eating and drinking make her pain worse and bring on vomiting. She states though at times the pain will just flare up and cause her to get worse as well. Patient was seen at [facility] for this but they were unable to do an ultrasound but she states she is no better with the medicines they sent her home with. She was also seen by primary care physician and set up for outpatient right upper quadrant ultrasound but she states that her pain is become worse today and she does not believe that she can wait. Associated Symptoms: Reports diarrhea, nausea and vomiting; Denies chills, coffee ground emesis, constipation, GI cramping, dysuria, fever(s), heartburn, hematochezia, hematuria, hematemesis, melena and syncope Related Data: Date of Last Menstrual Period: 11/29/19 Review of Systems Const: Denies: fever(s), chills, body aches, fatigue, malaise or diaphoresis Eyes: Denies: change in vision, blurry vision, photophobia, eye discomfort, eye discharge, eye redness or yellow eyes ENMT: Denies: throat pain, odynophagia, hoarseness, swelling of lips/tongue, ear or mastoid pain, ear discharge, change in hearing or nasal discharge Card: Denies: chest pain, palpitations, irregular heart rhythm, edema, lightheadedness, syncope, pre-syncope, dyspnea on exertion or orthopnea Resp: Denies: dyspnea, productive cough, non-productive cough, wheezing, hemoptysis or chest congestion GI: Reports: abdominal pain, nausea, vomiting and diarrhea; Denies: hematemesis, coffee ground emesis, heartburn, constipation, GI cramping, hematochezia or melena : Denies: flank pain, dysuria, urinary frequency, urinary urgency or hematuria Musc: Denies: neck pain, back pain, extremity pain, extremity swelling, joint pain, joint swelling, joint redness, joint warmth or joint stiffness Skin/Breast: Denies: rash, pruritus, erythema, skin pain or skin tenderness Neuro: Denies: headache(s), numbness in extremities, weakness in extremities, sensory changes, lack of coordination, difficulty walking, dizziness, vertigo, confusion, Slurred speech present or seizure-like activity Juan Carlos/Lymph: Denies: easy bruising, easy bleeding, petechiae, purpura or enlarged lymph nodes All/Imm: Denies: urticaria, throat swelling, tongue swelling, facial swelling or acute wheezing PFSH ED PFSH: Medical History (Updated 05/18/20 @ 21:12 by Jaylin Boles) No pertinent past medical history Surgical History History of Social History Smoking and tobacco status: current every day smoker Female Reproductive History: Date of last menstrual period: 11/29/19 Physical Exam Const: COMMON NORMALS: no acute distress, patient oriented x3, no limitations and alert GENERAL APPEARANCE: cooperative HENMT: COMMON NORMALS: normocephalic, atraumatic, external ears normal, EAC's normal and Normal external nose present HEAD & SCALP: normal to inspection, normocephalic and atraumatic FACE & SINUS: normal facial exam and face symmetric NOSE: Normal external nose present and Normal nares present EXTERNAL EAR: Yes external ears normal EXTERNAL AUDITORY CANAL: EAC's normal MOUTH: Normal oral and palatal mucosa present, lip normal and tongue normal Eye: COMMON NORMALS: Equal, round and reactive pupils present and conjunctivae normal GENERAL EYE: appearance normal, both eyes and all related structures ALIGNMENT: Yes alignment normal PERIORBITAL: periorbital findings normal EYELID: eyelids normal CONJUNCTIVA: Yes conjunctivae normal SCLERA: sclerae normal PUPIL: Yes Equal, round and reactive pupils present Neck/C-Spine: COMMON NORMALS: full ROM, no lymphadenopathy, supple, no meningeal signs and no JVD GENERAL: Yes normal visual inspection and Yes trachea midline Chest: COMMONS NORMALS: normal inspection of the chest and normal palpation of entire chest wall Resp: COMMON NORMALS: normal respiratory effort, No retractions, No use of accessory muscles and clear to auscultation bilaterally EFFORT & INSPECTION: Yes able to speak in complete sentences and Yes symmetric chest movement AUSCULTATION: clear to auscultation bilaterally, no crackles, no rales, no rhonchi and no wheezes Cardio: COMMON NORMALS: no JVD, regular rate, regular rhythm, S1 normal heart sound present and S2 normal heart sound present RATE: regular rate RHYTHM: regular rhythm HEART SOUNDS: S1 normal heart sound present, S2 normal heart sound present, no click, no gallops, no murmurs and no rubs GI: COMMON NORMALS: Soft to palpation and No hepatosplenomegaly present PALPATION: Yes Soft to palpation, Yes Tenderness to palpation present (GI) Details: RUQ (Moderate without rebound or guarding), No Guarding due to palpation present (GI), No Rigid due to palpation, Yes No hepatosplenomegaly present, No Hernia present, No Palpable mass present and No Pulsatile mass present : COMMON NORMALS: Yes no CVA tenderness BLADDER/KIDNEY EXAM: Yes no CVA tenderness EXTERNAL FEMALE EXAM: No Hernia present Back/Pelvis: COMMON NORMALS: no CVA tenderness, thoracic and lumbar spine normal to inspection, no thoracic nor lumbar tenderness and thoraco-lumbar ROM normal Extremity: COMMON NORMALS: normal to inspection, full ROM, capillary refill normal, no joint enlargement, no clubbing, cyanosis or edema and no calf tenderness Neuro: COMMON NORMALS: patient oriented x3, CN's II-XII intact bilaterally, moves all extremities, no focal motor deficits and no sensory deficits noted SENSORIUM/ORIENTATION: Yes alert MENINGEAL SIGNS: Yes no meningeal signs SPEECH: speech normal Psych: COMMON NORMALS: mental status grossly normal, Normal thought process present, cooperative, normal affect, speech normal and activity/motor behavior normal SPEECH: Yes normal speech THOUGHT PROCESS: Normal thought process present Skin: COMMON NORMALS: no rashes or lesions noted, turgor normal, no jaundice, no petechiae and no mottling GENERAL SKIN EXAM: no rashes or lesions noted and turgor normal Course Vital Signs: Vital signs: Vital Signs Temperature 97.9 F 05/18/20 22:11 Pulse Rate 82 05/18/20 22:11 Respiratory Rate 16 05/18/20 22:11 Blood Pressure 101/52 05/18/20 22:11 Pulse Oximetry 98 05/18/20 22:11 MDM - Abdominal Pain MDM Narrative: Medical decision making narrative: 2115 -patient is feeling much better would like to go home. Her gallbladder ultrasound was unremarkable. CT scan of abdomen and pelvis showed nothing acute. Patient's pain is been prolonged and primarily in the right upper quadrant. I believe she likely has a bad gallbladder. She will need outpatient HIDA scan and possible planned cholecystectomy. I reviewed this with the patient and she is aware. She agrees to get a outpatient HIDA scan and follow-up with Dr. Cordova. She understands to return here if her symptoms change or worsen but at this time I see no evidence of appendicitis, bowel obstruction, mesenteric ischemia or other acute process. Lab Data: Attestation: I reviewed the patient's lab results. Labs: Lab Results 05/18/20 05/18/20 05/18/20 Range/Units 19:19 19:19 19:19 WBC 11.6 H (4.0-10.0) 10^3/ uL RBC 4.91 (4.1-5.3) 10^6/u L Hgb 13.5 (11.5-15.3) g/dL Hct 40.4 (37.0-47.0) % MCV 82.3 (81-99) fL MCH 27.5 L (28.0-34.0) pg MCHC 33.4 (30.0-36.0) g/dL RDW 12.4 (12.1-15.1) % Plt Count 331 (130-400) 10^3/c mm MPV 9.2 (7.4-10.4) fL Neut % (Auto) 65.1 % Lymph % (Auto) 28.8 % Charlton % (Auto) 3.7 % Eos % (Auto) 1.9 % Baso % (Auto) 0.3 % Neut # (Auto) 7.52 (1.8-7.7) 10^3/u L Lymph # (Auto) 3.3 (0.8-4.8) 10^3/u L Charlton # (Auto) 0.4 (0.2-0.9) 10^3/u L Eos # (Auto) 0.2 (0.0-0.8) 10^3/u L Baso # (Auto) 0.0 (0.0-0.1) 10^3/u L Nucleated RBC % (a uto) 0 % Nucleated RBCs # 0.0 /100WBC Sodium 137 (136-145) mmol/L Potassium 4.1 (3.5-5.1) mmol/L Chloride 103 (98-107) mmol/L Carbon Dioxide 25 (22-29) mmol/L Anion Gap 13.1 (5-19) BUN 8 (6-20) mg/dL Creatinine 0.8 (0.5-0.9) mg/dL GFR Calculation 84.2 L (90-130) mL/min Glucose 99 (65-115) mg/dL Calculated Osmolal ity 282 L (285-295) mOsm/k g Calcium 9.4 (8.5-10.5) mg/dL Total Bilirubin 0.3 (0.15-1.2) mg/dL AST 14 (0-32) U/L ALT 19 (0-33) U/L Alkaline Phosphata se 139 H (35-105) IU/L Total Protein 7.3 (6.6-8.7) g/dL Albumin 4.4 (3.5-5.2) g/dL Globulin 2.9 (1.3-4.6) g/dL Lipase 19 (13-60) U/L HCG, Qual (Negative) Urine Color (Yellow) Urine Appearance (CLEAR) Urine pH (5-7) Ur Specific Gravit y (1.005-1.030) Urine Protein (Negative) Urine Glucose (UA) (Normal) Urine Ketones (Negative) Urine Blood (Negative) Urine Nitrate (Negative) Urine Bilirubin (Negative) Urine Urobilinogen (Negative) mg/dL Ur Leukocyte Cecilia ase (Negative) H. pylori IgG Anti body Negative (Negative) 05/18/20 05/18/20 Range/Units 19:19 19:40 WBC (4.0-10.0) 10^3/ uL RBC (4.1-5.3) 10^6/u L Hgb (11.5-15.3) g/dL Hct (37.0-47.0) % MCV (81-99) fL MCH (28.0-34.0) pg MCHC (30.0-36.0) g/dL RDW (12.1-15.1) % Plt Count (130-400) 10^3/c mm MPV (7.4-10.4) fL Neut % (Auto) % Lymph % (Auto) % Charlton % (Auto) % Eos % (Auto) % Baso % (Auto) % Neut # (Auto) (1.8-7.7) 10^3/u L Lymph # (Auto) (0.8-4.8) 10^3/u L Charlton # (Auto) (0.2-0.9) 10^3/u L Eos # (Auto) (0.0-0.8) 10^3/u L Baso # (Auto) (0.0-0.1) 10^3/u L Nucleated RBC % (a uto) % Nucleated RBCs # /100WBC Sodium (136-145) mmol/L Potassium (3.5-5.1) mmol/L Chloride (98-107) mmol/L Carbon Dioxide (22-29) mmol/L Anion Gap (5-19) BUN (6-20) mg/dL Creatinine (0.5-0.9) mg/dL GFR Calculation (90-130) mL/min Glucose (65-115) mg/dL Calculated Osmolal ity (285-295) mOsm/k g Calcium (8.5-10.5) mg/dL Total Bilirubin (0.15-1.2) mg/dL AST (0-32) U/L ALT (0-33) U/L Alkaline Phosphata se (35-105) IU/L Total Protein (6.6-8.7) g/dL Albumin (3.5-5.2) g/dL Globulin (1.3-4.6) g/dL Lipase (13-60) U/L HCG, Qual Negative (Negative) Urine Color Yellow (Yellow) Urine Appearance Clear (CLEAR) Urine pH 6 (5-7) Ur Specific Gravit y 1.015 (1.005-1.030) Urine Protein Neg (Negative) Urine Glucose (UA) Norm (Normal) Urine Ketones Negative (Negative) Urine Blood Neg (Negative) Urine Nitrate Negative (Negative) Urine Bilirubin Neg (Negative) Urine Urobilinogen Neg (Negative) mg/dL Ur Leukocyte Cecilia ase Negative (Negative) H. pylori IgG Anti body (Negative) Imaging Data ^: US: My impression: Ultrasound gallbladder and liver, tech interpretation -fatty liver otherwise no acute findings. No gallstones, no gallbladder wall thickening, no pericholecystic fluid, normal CBD. CT Abd/Pel: Radiologist's impression: [address] [address] [address] Scan Report Signed Patient: Emely Orozco Unit #: [id number] : 1990 Age/Sex: 29 / F ADM Date: 05/18/20 Loc: ER Room/Bed: Attending Dr: Ordering Provider/Ordering MD: Jaylin Boles DO Date of Service: 05/18/20 Procedure(s): CT abdomen pelvis w con* [id number] Accession Number(s): [id number] Report Number: [id number] PROCEDURE INFORMATION: Exam: CT Abdomen And Pelvis With Contrast Exam date and time: 05/18/2020 8:23 PM Age: 29 years old Clinical indication: Nausea and vomiting and other: Diarrhea; Abdominal pain; Localized; Right upper quadrant (ruq); Prior surgery; Surgery type: TECHNIQUE: Imaging protocol: Computed tomography of the abdomen and pelvis with intravenous contrast. Radiation optimization: All CT scans at this facility use at least one of these dose optimization techniques: automated exposure control; mA and/or kV adjustment per patient size (includes targeted exams where dose is matched to clinical indication); or iterative reconstruction. Contrast material: OMNI 300; Contrast volume: 95 ml; Contrast route: INTRAVENOUS (IV); COMPARISON: CT Abdomen/Pelvis Renal [id number] 11/29/2014 3:04 PM RADIATION DOSE METRICS: Total DLP (mGy-cm): 1475.9 FINDINGS: Lungs: Tiny subcentimeter nodules are again seen in the right middle and both lower lobes, which appear stable and are likely benign. Left basilar subsegmental atelectasis is also appreciated. Heart: The heart is normal in size. Liver: Normal. No mass. Gallbladder and bile ducts: Normal. No calcified stones. No ductal dilation. Pancreas: Normal. No ductal dilation. Spleen: Normal. No splenomegaly. Adrenal glands: Normal. No mass. Kidneys and ureters: Normal. No hydronephrosis. Stomach and bowel: Unremarkable. No obstruction. No mucosal thickening. Appendix: The appendix is normal. Intraperitoneal space: Unremarkable. No free air. No significant fluid collection. Vasculature: Unremarkable. No abdominal aortic aneurysm. Lymph nodes: Unremarkable. No enlarged lymph nodes. Urinary bladder: Unremarkable as visualized. Reproductive: Possible arcuate uterus is noted. The ovaries appear normal. Bones/joints: Unremarkable. No acute fracture. Soft tissues: Unremarkable. CT/CT abdomen pelvis w con* [id number] IMPRESSION: No acute abnormality is seen in the abdomen or pelvis. Stable bibasilar subcentimeter nodules, which are likely benign. Radiation Dose CTDIVOL = (mGy): DLP = 1475.9 (mGy-cm) Dictated By: Poncho Gonzalez MD Signed By: Poncho Gonzalez MD Signed Date/Time: 05/18/202049 DD/ 48 Discharge Plan Discharge Patient Disposition: Home Clinical Impression: Abdominal pain Qualifiers: Abdominal location: right upper quadrant Qualified Code(s): R10.11 - Right upper quadrant pain Condition: Stable Prescriptions: New Protonix 40 mg tablet,delayed release (DR/EC) 40 mg PO BID 14 Days Qty: 28 RF: 0 Zofran 4 mg tablet 4 mg PO Q6H PRN (Reason: nausea and vomiting) Qty: 20 RF: 0 No Action Control See Rx Instructions .ROUTE .COMPLEX RF: 0 Discharge Orders: Discharge Order (Routine); Ordered 05/18/20 Ordered By: Jaylin Boles Referrals: Omar Cordova MD [Physician] - 1-3 days Discharge Diet: Advance as tolerated and Clear Liquid Discharge Activity: Increase activity as tolerated Patient Instructions: Abdominal Pain (ED) Activity Restrictions/Additional Instructions: Please return to the ER immediately for any of the signs or symptoms listed on your discharge instruction sheets, worsening/changing of your symptoms, you are not getting better as quickly as expected, or for ANY other cause or concerns. Follow a clear liquid diet and advance as you can tolerate. Return to the ER for uncontrolled pain, vomiting, blood in your stools, or for any other cause for concern. Be certain to call and arrange an appointment to see Dr. Cordova for as soon as possible. Stand Alone Forms: Work/School Release Discharge Date/Time: 05/18/20 22:11 Coding Level of Care Code ED Craft Superintendent for Chg Fwd Exam Comprehensive
[2020-05-18 19:32] LABS: Basophils % 0.3 %; Eosinophils # 0.2 10^3/uL (0.0-0.8); Eosinophils % 1.9 %; Hematocrit 40.4 % (37.0-47.0); Hemoglobin 13.5 g/dL (11.5-15.3); Lymphocytes # 3.3 10^3/uL (0.8-4.8); Lymphocytes % 28.8 %; Mean Corpuscular HGB Conc 33.4 g/dL (30.0-36.0); Mean Corpuscular Hemoglobin 27.5 pg (28.0-34.0); Mean Corpuscular Volume 82.3 fL (81-99); Mean Platelet Volume 9.2 fL (7.4-10.4); Monocytes # 0.4 10^3/uL (0.2-0.9); Monocytes % 3.7 %; Neutrophils # 7.52 10^3/uL (1.8-7.7); Neutrophils % 65.1 %; Nucleated Red Blood Cells % 0 %; Platelet Count 331 10^3/cmm (130-400); Red Blood Count 4.91 10^6/uL (4.1-5.3); Red Cell Distribution Width 12.4 % (12.1-15.1); White Blood Count 11.6 10^3/uL (4.0-10.0)
[2020-05-18] MEDS: sodium chloride 0.9% 1,000 ML 999 ML IV (19:34)
[2020-05-18] MEDS: ondansetron 2 mg/ML SDV 2 mL 4 MG IVP (19:35)
[2020-05-18 19:37] VITALS: O2SAT 99
[2020-05-18 19:52] LABS: Alanine Aminotransferase 19 U/L (0-33); Albumin Level 4.4 g/dL (3.5-5.2); Alkaline Phosphatase 139 IU/L (35-105); Anion Gap 13.1 (5-19); Aspartate Amino Transferase 14 U/L (0-32); Blood Urea Nitrogen 8 mg/dL (6-20); Calcium 9.4 mg/dL (8.5-10.5); Carbon Dioxide 25 mmol/L (22-29); Chloride 103 mmol/L (98-107); Globulin 2.9 g/dL (1.3-4.6); Glomerular Filtration Rate 84.2 mL/min (90-130); Glucose 99 mg/dL (65-115); HCG, Serum Qual Negative (Negative); Lipase 19 U/L (13-60); Osmolality Calculated 282 mOsm/kg (285-295); Potassium 4.1 mmol/L (3.5-5.1); Sodium 137 mmol/L (136-145); Total Bilirubin 0.3 mg/dL (0.15-1.2); Total Protein 7.3 g/dL (6.6-8.7)
[2020-05-18 19:52] LABS: Add Urine Microscopic? NO
[2020-05-18 19:54] LABS: H. Pylori IgG Antibody Negative (Negative)
[2020-05-18 20:01] LABS: Bilirubin Urine Neg (Negative); Blood Urine Neg (Negative); Glucose Urine UA Norm (Normal); Ketones Urine Negative (Negative); Leukocyte Esterase Urine Negative (Negative); Nitrate Urine Negative (Negative); Protein Urine Neg (Negative); Specific Gravity, Urine 1.015 (1.005-1.030); Urine Appearance Clear (CLEAR); Urine Color Yellow (Yellow); Urobilinogen Urine Neg (Negative); pH Urine 6 (5-7)
--- NOTE | 2020-05-18 20:11 | CTR_ITS ---
PROCEDURE INFORMATION: Exam: CT Abdomen And Pelvis With Contrast Exam date and time: 05/18/2020 8:23 PM Age: 29 years old Clinical indication: Nausea and vomiting and other: Diarrhea; Abdominal pain; Localized; Right upper quadrant (ruq); Prior surgery; Surgery type: TECHNIQUE: Imaging protocol: Computed tomography of the abdomen and pelvis with intravenous contrast. Radiation optimization: All CT scans at this facility use at least one of these dose optimization techniques: automated exposure control; mA and/or kV adjustment per patient size (includes targeted exams where dose is matched to clinical indication); or iterative reconstruction. Contrast material: OMNI 300; Contrast volume: 95 ml; Contrast route: INTRAVENOUS (IV); COMPARISON: CT Abdomen/Pelvis Renal [id number] 11/29/2014 3:04 PM RADIATION DOSE METRICS: Total DLP (mGy-cm): 1475.9 FINDINGS: Lungs: Tiny subcentimeter nodules are again seen in the right middle and both lower lobes, which appear stable and are likely benign. Left basilar subsegmental atelectasis is also appreciated. Heart: The heart is normal in size. Liver: Normal. No mass. Gallbladder and bile ducts: Normal. No calcified stones. No ductal dilation. Pancreas: Normal. No ductal dilation. Spleen: Normal. No splenomegaly. Adrenal glands: Normal. No mass. Kidneys and ureters: Normal. No hydronephrosis. Stomach and bowel: Unremarkable. No obstruction. No mucosal thickening. Appendix: The appendix is normal. Intraperitoneal space: Unremarkable. No free air. No significant fluid collection. Vasculature: Unremarkable. No abdominal aortic aneurysm. Lymph nodes: Unremarkable. No enlarged lymph nodes. Urinary bladder: Unremarkable as visualized. Reproductive: Possible arcuate uterus is noted. The ovaries appear normal. Bones/joints: Unremarkable. No acute fracture. Soft tissues: Unremarkable. CT/CT abdomen pelvis w con* [id number] IMPRESSION: No acute abnormality is seen in the abdomen or pelvis. Stable bibasilar subcentimeter nodules, which are likely benign. Radiation Dose CTDIVOL = (mGy): DLP = 1475.9 (mGy-cm)
[2020-05-18] MEDS: iohexol 300 mg/mL 100 mL Btl IV (20:28)
[2020-05-18] MEDS: pantoprazole 40 mg SDV 80 MG IVP (21:39)
[2020-05-18 22:11] VITALS: BP 101/52; PULSE 82; RESP 16; TEMP 36.6; O2SAT 98
--- NOTE | 2020-05-19 09:23 | DCPLANNER ---
resource efficiency manager had message to schedule a follow up appointment for patient with general surgery. resource efficiency manager emailed Jammie and Marbella at [facility] about patient needing to be seen at the clinic. Patients information will be printed and reviewed. Clinic will call patient with appointment information. resource efficiency manager also had message to schedule an outpatient hida scan, employment case manager faxed order to centralized scheduling. resource efficiency manager will call for appointment information.
--- NOTE | 2020-05-24 15:44 | DCPLANNER ---
Patient had a follow up out patient hida scan scheduled for 05.23.20 - patient did attend Patient had a follow up appointment for 05.22.20 with [facility] - patient did attend the appointment.
== END 2020-05-18 22:11 | disposition home or self-care (01) ==
PROVIDERS: Emergency Medicine; Emergency Provider Emergency Medicine
DX: R10.11 Right upper quadrant pain (principal); F17.210 Nicotine dependence, cigarettes, uncomplicated
CPT/HCPCS: 12345; 74177; 76705; 80053; 81003; 83690; 84703; 85025; 86677; 96361; 96374; 96375; 99283; C9113; J0131; J2405; J7030; Q9967

== ENCOUNTER 2020-05-23 07:10 | Outpatient (CLI) | payer MEDICAID, SELFPAY ==
--- NOTE | 2020-05-23 07:16 | NM_ITS ---
WS: [id number] NUCLEAR MEDICINE HIDA SCAN CLINICAL INFORMATION: R10.11 - Right upper quadrant pain TECHNIQUE: Following intravenous administration of 7.8 mCi of technetium 99m mebrofenin, images of th e abdomen were obtained over the course of 60 minutes. Next, gallbladder ejection fraction was determ ined by obtaining preprandial and one-hour postprandial images of the gallbladder following oral carol stion of Ensure. COMPARISON: CT and ultrasound May 18, 2020 FINDINGS: Normal hepatic uptake at 5 minutes. Normal hepatic excretion. Gallbladder is visualized by 15 minutes . No evidence of acute cholecystitis. Normal common bile duct. Small bowel is visualized. No evidence of choledocholithiasis. Gallbladder ejection fraction 88% within normal limits. No evidence of chronic cholecystitis. NM/NM hepatobiliary w phar* [id number] IMPRESSION: 1. No evidence of acute or chronic cholecystitis. 2. Gallbladder ejection fraction 88% within normal limits.
== END 2020-05-23 07:11 | disposition home or self-care (01) ==
LOC: RAD 07:12
PROVIDERS: Visit Provider Emergency Medicine
DX: R10.11 Right upper quadrant pain (principal)
CPT/HCPCS: 78227; A9537

== ENCOUNTER → 2020-05-24 11:37 | Outpatient (BNVA) | payer MEDICAID, SELFPAY | PROVIDERS: Visit Provider Surgery | DX: Z20.828 Contact with and (suspected) exposure to other viral communicable diseases (principal); R10.11 Right upper quadrant pain | CPT/HCPCS: 87635 ==

== ENCOUNTER 2020-05-30 08:44 | Day surgery (SDC) | payer MEDICAID, SELFPAY ==
[2020-05-29 11:58] VITALS: BMI 34.5
[2020-05-30] VITALS (13 sets, daily range): BP systolic 118–145; BP diastolic 74–102; PULSE 58–94; RESP 12–20; TEMP 36.8–37.8; O2SAT 94–99
[2020-05-30] MEDS: sodium chloride 0.9% 1,000 ML 30 ML IV (09:38)
--- NOTE | 2020-05-30 09:47 | ANES.PREANE2 ---
Pre-Anesthetic Assessment Pre-Anesthetic Assessment: Height/Weight: Height 1.6 m Weight 88.451 kg Temp Pulse Resp BP Pulse Ox 98.7 F 87 20 H 126/90 99 05/30/20 09:33 05/30/20 09:33 05/30/20 09:33 05/30/20 09:33 05/30/20 09:33 Preop Diagnosis: Transverse presentation Proposed Procedure: Operation Date: 05/30/20 10:30 Proposed Procedures p Laparoscopic Cholecystectomy 31485 K82.8(Not Applicable) - Eduardo Sanders MD Familial anesthetic complications: None Was Beta Froy taken within 24 hours: N/A Last intake: Intake Last Liquid Date 05/29/20 Last Liquid Time 22:00 Last Solid Date 05/29/20 Last Solid Time 18:00 Social: Social History: Tobacco and No alcohol Exam: Pre-Anes Outpt Exam: alert, oriented x 3, clear to auscultation bilaterally and regular rate & rhythm Airway: Cervical ROM: WNL MP: 3 Dentition: False GI: GI: GERD Anesthetic Plan: ASA status: 2 Anesthesia: General Risk of > 500 ml blood loss (7ml/kg in children): No Meds/Allergies Current Medications: Current Medications Generic Name Dose Route Start Last Admin Trade Name Freq PRN Reason Stop Dose Admin Sodium Chloride 1,000 mls @ 30 ml s/hr 05/30/20 07:30 05/30/20 09:38 Sodium Chloride 0.9% IV 05/31/20 07:29 30 mls/hr .Q24H ROBEL Administration PFSH Anesthesia PFSH: Medical History (Updated 05/26/20 @ 00:00 by ) No pertinent past medical history Surgical History History of Social History Smoking and tobacco status: current every day smoker Female Reproductive History: Date of last menstrual period: 05/12/20 Data Anesthesia Cardiac Studies: No Data to Display
--- NOTE | 2020-05-30 10:56 | W.PM.OPSUD ---
Surgery/Procedure H&P Update DATE OF PROCEDURE: May 30, 2020 DATE H&P PERFORMED: 05/22/20 H&P UPDATE INFORMATION: I have reviewed H&P completed within last 30 days, I have examined patient prior to procedure and No changes to prior documentation PREOP DIAGNOSIS: Biliary colic PRIMARY INDICATION FOR PROCEDURE: The same PLANNED PROCEDURE: Operation Date: 05/30/20 10:30 Proposed Procedures p Laparoscopic Cholecystectomy 30262 K82.8(Not Applicable) - Eduardo Sanders MD
[2020-05-30] MEDS: lidocaine 2% INJ 20 mL INJECTION (11:40)
--- NOTE | 2020-05-30 12:07 | P.OP_ITS ---
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 Plan of care; After thorough history physical examination and reviewing the chart ,I counseled the patient for laparoscopic cholecystectomy possible open, indications risks including but not limited injury to the common bile duct and other viscera.benefits and alternatives all discussed with the patient, and she did agree to proceed. All questions have been answered and all concerns have been addressed to patient's satisfaction. Rationale was carefully and clearly discussed with the patient.Appropriate informed consent have been reviewed and signed. Procedure: Patient was identified in the holding area and taken back to the operative suite, placed in supine position intubated by anesthesia . Time-out was done verifying the patient's name/date of /planned procedure and destination after the procedure, all were in agreement. SCDs confirmed to be functioning, preoperative antibiotics administered per protocol, and beta nj protocol was confirmed. Patient was appropriately secured to the table, footboard was applied to the OR table, before prep and drape anesthesia was asked to tilt the table back and forth to make sure that the patient is appropriately secured and she was. Prep and drape of the abdomen was done under the usual sterile technique, followed by that supraumbilical skin incision,skin incision was done by a 15 blade knife, and stay sutures were applied to the fascia and Hernandez trocar technique was used to enter the abdominal without injuring any abdominal viscera, started by low flow gas insufflation followed by a high flow, started with a 10 mm laparoscope and under direct vision there was no evidence of any injuries, the scope then switched to a 30? ,10 millimeter scope and under direct visualization 5 millimeter trocar was inserted in the epigastric region followed by two 5 mm trocars were inserted in the right upper quadrant that was done after injection of local lidocaine 2% at all incision sites. Gallbladder showed chronic cholecystitis with hepatomegaly likely due to fatty l iver Patient was then positioned in the head up and tilted to the left Ratcheted forceps were introduced into the lateral most 5mm port and was applied unto the fundus of the gallbladder cephalad and using Bullet forceps the infundibulum of the gallbladder was retracted laterally. Using [place] forceps then L-hook cautery to dissect the peritoneum overlying the Calot's triangle whihc was then opened medially and laterally until the cystic duct and the cystic artery were skeletonized. Dissection was carried along the body of the gallbladder and after ensuring critical view of safety was identfied. Cystic duct and cystic artery where seen connected to the gallbladder. Clips were applied on the cystic duct towards the common bile duct 1 towards the gallbladder then divided is in sharp scissors, 2 clips were then applied onto the cystic artery and 1 towards the gallbladder and divided by sharp scissors. Additional traversing vessel was clipped and divided. Dissection was then carried along of the gallbladder from the gallbladder fossa using cautery as well as sharp dissection with heat energy. The gallbladder then was dissected out from the gallbladder fossa totally , cho lecystectomy was then achieved and was placed in an Endo Catch bag and then retrieved from the Hernandez trocar site under direct visualization using a 5 mm 30? scope through the epigastric trocar, specimen was then passed to the circulating nurse to go for permanent pathology,irrigation and hemostasis was done to the gallbladder fossa after hemostasis was secured, final survey laparoscopy was done that showed no injuries. The supraumbilical fascial defect was then closed using interrupted PDS sutures using a fascial closure device ;Arthur Carlos under direct visualization Gas was allowed to deflate,Trocars were then taken out under direct vision there was no evidence of bleeding Specimen was passed to the circulating nurse for permanent pathology. No drains were placed and the supraumbilical incision as well as all trocar sites were closed by by 4-0 Monocryl to approximate the skin edges of the supraumbilical incision, dressing was applied in the form of surgical glue and the patient patient got extubated and was taken to recovery area in a stable condition. Count of sponges,needles and instruments were completed at the end of the procedure I was present for the whole entire procedure.
[2020-05-30] MEDS: fentaNYL 50 mcg/mL INJ 2mL IVP (12:31)
[2020-05-30] MEDS: ondansetron 2 mg/ML SDV 2 mL 4 MG IVP ×2 (12:35→12:37)
[2020-05-30] MEDS: metoclopramide 5 mg/mL SDV 2 mL 10 MG IVP (12:45)
--- NOTE | 2020-05-30 14:33 | ANE.PACU2 ---
Inpatient post-anesthesia follow up: Airway intact: Yes Vital signs: Temperature 98.8 F Pulse Rate 70 Respiratory Rate 18 Blood Pressure 128/74 Pulse Oximetry 96 Oxygen Delivery Me thod Room Air Oxygen Flow Rate 2 Fraction of Inspir ed Oxygen Hydration adequate: Yes Nausea and vomiting: No Pain level: 2 Mental status: Baseline
== END 2020-05-30 14:20 | disposition home or self-care (01) ==
PROVIDERS: PCP Nurse Practitioner Family; Visit Provider Surgery
PROC: 0FT44ZZ Resection of Gallbladder, Percutaneous Endoscopic Approach (ICD-10-PCS; CPT 47562; principal; 2020-05-30 10:30)
DX: K81.1 Chronic cholecystitis (principal); F17.210 Nicotine dependence, cigarettes, uncomplicated; K21.9 Gastro-esophageal reflux disease without esophagitis
CPT/HCPCS: 47562; 12345; 88304; J0131; J0330; J0690; J1100; J2250; J2405; J2704; J2765; J3010; J3490; J7030

== ENCOUNTER → 2020-07-28 13:43 | Outpatient (BNVA) | payer MEDICAID, SELFPAY | PROVIDERS: PCP Nurse Practitioner Family; Visit Provider Nurse Practitioner Family | DX: M25.512 Pain in left shoulder (principal) | CPT/HCPCS: 73030 ==

== ENCOUNTER → 2021-02-16 11:00 | Outpatient (BNVA) | payer MEDICAID, SELFPAY | PROVIDERS: PCP Nurse Practitioner Family; Visit Provider Obstetrics & Gynecology | DX: Z20.822 Contact with and (suspected) exposure to COVID-19 (principal); Z30.2 Encounter for sterilization | CPT/HCPCS: 87635 ==

== ENCOUNTER 2021-02-22 05:39 | Day surgery (SDC) | payer MEDICAID, SELFPAY ==
[2021-02-21 14:37] VITALS: BMI 31.5
[2021-02-22] VITALS (13 sets, daily range): BP systolic 104–131; BP diastolic 63–87; PULSE 65–80; RESP 16–21; TEMP 36.2–37.2; O2SAT 91–100
[2021-02-22 06:17] LABS: OR HCG Qualitative Urine Negative (Negative)
[2021-02-22 06:32] LABS: Basophils % 0.4 %; Eosinophils # 0.4 10^3/uL (0.0-0.8); Eosinophils % 3.5 %; Hematocrit 43.8 % (37.0-47.0); Hemoglobin 14.8 g/dL (11.5-15.3); Lymphocytes # 2.4 10^3/uL (0.8-4.8); Lymphocytes % 22.2 %; Mean Corpuscular HGB Conc 33.8 g/dL (30.0-36.0); Mean Corpuscular Hemoglobin 28.8 pg (28.0-34.0); Mean Corpuscular Volume 85.4 fL (81-99); Mean Platelet Volume 9.6 fL (7.4-10.4); Monocytes # 0.6 10^3/uL (0.2-0.9); Monocytes % 5.6 %; Neutrophils # 7.25 10^3/uL (1.8-7.7); Neutrophils % 68.1 %; Nucleated Red Blood Cells % 0 %; Platelet Count 228 10^3/cmm (130-400); Red Blood Count 5.13 10^6/uL (4.1-5.3); Red Cell Distribution Width 12.3 % (12.1-15.1); White Blood Count 10.6 10^3/uL (4.0-10.0)
[2021-02-22] MEDS: sodium chloride 0.9% 1,000 ML 30 ML IV (06:37)
--- NOTE | 2021-02-22 06:52 | W.PM.OPSUD ---
Surgery/Procedure H&P Update DATE OF PROCEDURE: February 22, 2021 DATE H&P PERFORMED: 02/19/21 H&P UPDATE INFORMATION: I have reviewed H&P completed within last 30 days, I have examined patient prior to procedure, No changes to prior documentation and [place] [facility] [place] date indicated PREOP DIAGNOSIS: Multiparity desiring sterilization PLANNED PROCEDURE: Operation Date: 02/22/21 07:00 Proposed Procedures p Laparoscopic tubal ligation 29166 Z30.2(Not Applicable) - Doris Wilder MD
--- NOTE | 2021-02-22 07:07 | ANES.PREANE2 ---
Pre-Anesthetic Assessment Pre-Anesthetic Assessment: Height/Weight: Height 1.6 m Weight 80.739 kg Preop Diagnosis: Multiparity desiring sterilization Proposed Procedure: Operation Date: 02/22/21 07:00 Proposed Procedures p Laparoscopic tubal ligation 72840 Z30.2(Not Applicable) - Doris Wilder MD Was Beta Froy taken within 24 hours: N/A Was Clonidine taken within 24 hours: N/A Last intake: Intake Last Liquid Date 02/21/21 Last Liquid Time 21:00 Last Solid Date 02/21/21 Last Solid Time 21:00 Social: Social History: Tobacco and No alcohol Exam: Pre-Anes Outpt Exam: alert, oriented x 3 and regular rate & rhythm Airway: Submandibular: WNL Cervical ROM: WNL MP: 2 Dentition: False GI: GI: GERD Anesthetic Plan: ASA status: 2 Anesthesia: General Risk of > 500 ml blood loss (7ml/kg in children): No Meds/Allergies Current Medications: Current Medications Generic Name Dose Route Start Last Admin Trade Name Freq PRN Reason Stop Dose Admin Sodium Chloride 1,000 mls @ 30 ml s/hr 02/22/21 06:00 02/22/21 06:37 Sodium Chloride 0.9% IV 02/23/21 05:59 30 mls/hr .Q24H ROBEL Administration PFSH Anesthesia PFSH: Medical History GERD (gastroesophageal reflux disease) Takes medication for this managed by PMD. Has not had an EGD prior. No pertinent past medical history Denies diabetes, asthma, hypertension, seizures, DVT/PE PCP: LORE Kim Surgical History History of x 2 ----> 2012 and 2019 S/P laparoscopic cholecystectomy May 2020 ----per[place]. España [place] [facility] [place] Family History Grandfather Diabetes maternal Grandmother Breast cancer maternal, diagnosed at age 59 Denies family history of Colon cancer Ovarian cancer Heart disease Hyperlipidemia Hypertension Uterine cancer Thyroid condition Stroke Social History Smoking and tobacco status: current every day smoker Female Reproductive History: Date of last menstrual period: 05/12/20 Data Anesthesia CBC & Chem 7: 02/22/21 06:20 Other Labs: Laboratory Results - last 48 hr 02/22/21 02/22/21 06:01 06:20 WBC 10.6 H RBC 5.13 Hgb 14.8 Hct 43.8 MCV 85.4 MCH 28.8 MCHC 33.8 RDW 12.3 Plt Count 228 MPV 9.6 Neut % (Auto) 68.1 Lymph % (Auto) 22.2 Carlisle % (Auto) 5.6 Eos % (Auto) 3.5 Baso % (Auto) 0.4 Neut # (Auto) 7.25 Lymph # (Auto) 2.4 Carlisle # (Auto) 0.6 Eos # (Auto) 0.4 Baso # (Auto) 0.0 Nucleated RBC % (auto) 0 Nucleated RBCs # 0.0 Urine HCG, Qual Negative Cardiac Studies: No Data to Display
--- NOTE | 2021-02-22 08:17 | P.OP_ITS ---
Operative Report Date of procedure: February 22, 2021 OPERATIVE REPORT Date of surgery: 02/22/2021 Date of dictation: 02/22/2021 Preoperative diagnosis: Multiparity desiring permanent sterilization, previous delivery x2, obesity, acid reflux Postoperative diagnosis/findings: Same, on examination under anesthesia 6 to 8- week size anteverted uterus, on laparoscopy consummate dilatations on the lower abdomen and area of . Dense adhesions of bladder onto uterus and uterus is adherent to the anterior abdominal wall. 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 No other abnormalities. Procedure done: Laparoscopic bilateral total salpingectomy for sterilization Specimens removed/disposition of specimens: Right and left fallopian tubes sent to pathology Surgeon: Dr. Doris Fink Electroplater Apprentice: Eileen Church Anesthesia: General endotracheal tube anesthesia Estimated blood loss: 25 ml Intravenous fluids: 900 mL of LR Urine output: 50 mL of urine via catheter at the end of procedure Medications: As per anesthesia records Complications: None, patient was extubated and taken to the recovery room in a stable condition. PROCEDURE: After consents were signed patient was taken to the operating room where she was placed under general anesthesia without any difficulty. She was placed supine on the table in the lithotomy position. Exam under anesthesia revealed findings noted above. She was then prepped and draped in usual sterile fashion. Weighted speculum and anterior wall retractors were placed in the vagina, cervix visualized and grasped with a tenaculum. ZUMI uterine manipulator was placed into the uterus without any difficulty. Catheter was placed, instruments were removed from the vagina and the legs were lowered. Attention was turned towards the abdomen where local anesthetic was injected in to her umbilicus. A 10 mm skin incision was made and a 10 mm port was placed through the umbilicus using an open technique--- fascia was identified and tented up with Sean clamps and directly incised using curved Mayos. Peritoneum was then bluntly entered digitally and palpation revealed no adhesions around site of entry. Hernandez trocar was then attached to the fascia and inflated. Once intra-abdominal entry was confirmed gas was turned on and intra-abdominal opening pressure was 2. The abdomen is insufflated to the pressure was 14. Survey of the abdomen revealed findings noted above. Two 5 mm trocar was placed into the left and right lower quadrant under direct visualization after injecting local anesthetic. The Voyant device was used to take down the omental adhesions. A total of 8 minutes was spent with adhesiolysis. Adhesions of the uterus onto the anterior abdominal wall and bladder were not taken down. The cautery device was used to clamp, cauterize and then cut the mesosalpinx under the fallopian tube starting at the fimbriated end and moving towards the uterus. This was done in a sequential fashion in such a way that the entire fallopian tube was from the sidewall and the uterus. The small cornual stump was cauterized as well. This was done first on the right side and then the left side without any difficulty. The right and left fallopian tubes were taken out without any difficulty and sent to pathology-right tube was tagged. No bleeding was noted at sites of surgery when pressure was lowered to 0. Trochars were removed under direct visualization. All instruments removed from the abdomen and the abdomen was desufflated. The fascia on the umbilical port was closed with 0 Vicryl in a continuous fashion and good reapproximation was obtained-care was taken to tent up the fascia throughout the closure. The skin incisions was closed with 4-0 Monocryl in a subcuticular fashion good reapproximation and hemostasis was n oted. The incisions were dressed with Steri-Strips Telfa and Tegaderm. The ZUMI and Riddle catheter were removed and good hemostasis was noted. The patient was extubated without any difficulty and taken to the recovery room in a stable condition. FOLLOW UP: Follow-up in 2 weeks and 6 weeks with surgeon MEDICATION ON DISCHARGE: Colace 100 mg by mouth every 12 hours when necessary constipation, 30 tablets, no refills Ibuprofen 800 mg by mouth every 8 hours when necessary pain, 30 tablets, no refills. Ruby 5/325 mg 1 tablet by mouth every 6 hours when necessary pain,25 tablets, no refills Continue other home medication DISPOSITION: Home in a stable condition This documentation was created by [employer] coffee sommelier software (known for inherent coffee sommelier error). Every effort was made to assure accuracy of coffee sommelier. Any obvious errors or omissions should be clarified with the author of the document. Pre-op Diagnosis: Multiparity desiring sterilization
--- NOTE | 2021-02-22 08:22 | SUR.PHASEI ---
PT SLEEPING QUIETLY WITH GOOD RESP NOTED VSS IV PATENT ABD SOFT DRESSING D/I
--- NOTE | 2021-02-22 08:23 | SUR.PHASEI ---
PT AWAKES VERBAIZED APPROPRIATELY DENIES PAIN AND NAUSEA, PT QUICKLY BACK TO SLEEP VSS.
[2021-02-22] MEDS: ondansetron 2 mg/ML SDV 2 mL 4 MG IVP ×2 (08:28→09:31)
[2021-02-22] MEDS: fentaNYL 50 mcg/mL INJ 2mL IVP (08:29)
[2021-02-22] MEDS: HYDROcodone-acetaminophen 5-325 mg Tablet 1 TAB PO (09:25)
--- NOTE | 2021-02-22 14:36 | ANE.PACU2 ---
Inpatient post-anesthesia follow up: Airway intact: Yes Vital signs: Temperature 97.1 F Pulse Rate 68 Respiratory Rate 18 Blood Pressure 104/63 Pulse Oximetry 97 Oxygen Delivery Me thod Room Air Oxygen Flow Rate 6 Fraction of Inspir ed Oxygen Hydration adequate: Yes Nausea and vomiting: No Pain level: 2 Mental status: Baseline
== END 2021-02-22 10:10 | disposition home or self-care (01) ==
PROVIDERS: PCP Nurse Practitioner Family; Visit Provider Obstetrics & Gynecology
PROC: (CPT 58670; principal; 2021-02-22 07:00)
DX: Z30.2 Encounter for sterilization (principal); K21.9 Gastro-esophageal reflux disease without esophagitis; F17.210 Nicotine dependence, cigarettes, uncomplicated; Z83.3 Family history of diabetes mellitus; Z80.3 Family history of malignant neoplasm of breast
CPT/HCPCS: 58661; 36415; 81025; 84703; 85025; 86850; 86900; 88302; J1100; J1170; J2405; J2704; J2710; J3010; J3490; J7030

== ENCOUNTER 2021-03-10 08:00 | Outpatient (CLI) | payer MEDICAID, SELFPAY ==
[2021-03-10 08:15] VITALS: BP 118/82; PULSE 100; RESP 16; TEMP 36.8; O2SAT 99; BMI 30.6
[2021-03-10 08:58] VITALS: BP 115/72; PULSE 94; RESP 16; TEMP 36.7; O2SAT 98
[2021-03-10 09:58] VITALS: BP 112/79; PULSE 86; RESP 20; TEMP 36.7; O2SAT 97
== END 2021-03-10 09:58 | disposition home or self-care (01) ==
LOC: OPS 08:02
PROVIDERS: PCP Nurse Practitioner Family; Visit Provider Hospitalist
DX: U07.1 COVID-19 (principal)
CPT/HCPCS: 96365

== ENCOUNTER 2021-09-09 14:42 | Emergency (ER) | payer MEDICAID, SELFPAY ==
[2021-09-09] VITALS (20 sets, daily range): BP systolic 118–135; BP diastolic 67–86; PULSE 83–108; RESP 14–15; TEMP 36.6–36.7; O2SAT 98–100; BMI 34.5
[2021-09-09 15:58] LABS: Basophils % 0.3 %; Eosinophils # 0.2 10^3/uL (0.0-0.8); Eosinophils % 1.3 %; Hematocrit 36.3 % (37.0-47.0); Hemoglobin 12.5 g/dL (11.5-15.3); Lymphocytes % 17.4 %; Mean Corpuscular HGB Conc 34.4 g/dL (30.0-36.0); Mean Corpuscular Hemoglobin 30.4 pg (28.0-34.0); Mean Corpuscular Volume 88.3 fl (81-99); Mean Platelet Volume 9.1 fL (7.4-10.4); Monocytes # 0.6 10^3/uL (0.2-0.9); Monocytes % 5.3 %; Neutrophils # 8.54 10^3/uL (1.8-7.7); Nucleated Red Blood Cells % 0 %; Platelet Count 173 10^3/cmm (130-400); Red Blood Count 4.11 10^6/uL (4.1-5.3); Red Cell Distribution Width 13.2 % (12.1-15.1); White Blood Count 11.4 10^3/uL (4.0-10.0)
--- NOTE | 2021-09-09 16:11 | W.ED.GENADLT ---
HPI - General Adult General: Chief complaint: Abdominal Pain Stated complaint: Stomach pain Time Seen by Provider: 09/09/21 15:44 History of Present Illness: Patient is a 31-year-old female history of 2 prior C-sections, cholecystectomy, tubal ligation who presents the emergency room with acute on chronic abdominal pain. Patient says that she has been having periumbilical pain for the last 1 month that comes and goes. Episode of spasming lasting for few minutes at a time. Patient denies any hernia or any bulge. However since waking up this morning at 8:30 AM, patient has had severe constant pain around the umbilicus. Patient noticed that there is some redness around the umbilicus. Denies any severe nausea or vomiting, decrease in flatus or problem pooping. Patient also denies any fever/chills, urinary complaints, flank pain, history of kidney stones, new vaginal discharge, chest pain, shortness breath, palpitation, lightheadedness, or other complaints. Onset:acutely since 8 am Duration:8 hrs Location:home Severity:moderate Associated symptoms: Deny chest pain, dyspnea, nausea, rash, palpitations or vomiting Review of Systems Const: Denies: fever(s) or chills Eyes: Denies: change in vision ENMT: Denies: mouth pain Card: Denies: chest pain or palpitations Resp: Denies: dyspnea or non-productive cough GI: Reports: abdominal pain (+periumbilical pain); Denies: nausea, vomiting or diarrhea : Denies: dysuria Musc: Denies: extremity pain Skin/Breast: Denies: rash or new lesions Neuro: Denies: weakness in extremities Psych: Reports: other (Normal mood) Juan Carlos/Lymph: Denies: easy bruising PFS ED PFSH: Medical History GERD (gastroesophageal reflux disease) Takes medication for this managed by PMD. Has not had an EGD prior. No pertinent past medical history Denies diabetes, asthma, hypertension, seizures, DVT/PE PCP: LORE Kim Surgical History History of x 2 ----> 2012 and 2019 S/P laparoscopic cholecystectomy May 2020 ----performed by Dr. España at [facility] [place] Status post tubal ligation 02/22/2021---laparoscopic bilateral total salpingectomy for sterilization performed by Dr. Fink at [facility]. ---->, Omental adhesions which were taken down, dense additions of uterus onto bladder and anterior abdominal. 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 Normal tubes and ovaries. -----> pathology showed total transection, benign pathology Family History Grandfather Diabetes maternal Grandmother Breast cancer maternal, diagnosed at age 59 Denies family history of Colon cancer Ovarian cancer Heart disease Hyperlipidemia Hypertension Uterine cancer Thyroid condition Stroke Social History Smoking and tobacco status: current every day smoker Female Reproductive History: Date of last menstrual period: 05/12/20 Physical Exam Const: COMMON NORMALS: alert HENMT: COMMON NORMALS: atraumatic HEAD & SCALP: atraumatic MOUTH: moist mucous membranes not abnormal Eye: COMMON NORMALS: EOMs intact bilaterally and conjunctivae normal CONJUNCTIVA: Yes conjunctivae normal Neck/C-Spine: COMMON NORMALS: full ROM and supple Resp: COMMON NORMALS: normal respiratory effort and clear to auscultation bilaterally AUSCULTATION: clear to auscultation bilaterally Cardio: COMMON NORMALS: regular rate RATE: regular rate GI: COMMON NORMALS: Soft to palpation PALPATION: Yes Soft to palpation OTHER: +abdomianl distention, +moderate periumbilical tenderness to palpation. NO guarding rebound, guarding, rigidity. No CVA tenderness to percussion. Neg Lara/Neg McBurney's point tenderness, no suprabupic tenderness to palpation. Extremity: COMMON NORMALS: full ROM Neuro: SENSORIUM/ORIENTATION: Yes alert MOTOR EXAM: No Abnormal motor strength present and Other motor observations present (no focal motor deficits) Psych: COMMON NORMALS: speech normal SPEECH: Yes normal speech MOOD & AFFECT: Yes euthymic mood Course Vital Signs: Vital signs: Vital Signs Temperature 97.9 F 09/09/21 17:55 Pulse Rate 94 09/09/21 19:47 Respiratory Rate 14 09/09/21 17:55 Blood Pressure 122/67 09/09/21 19:39 Pulse Oximetry 100 09/09/21 19:47 MDM - General Adult Medical Decision Making 31-year-old female with a history of x2, cholecystectomy, tubal ligation presenting to the emergency room with periumbilical pain acutely worsening since 830 this morning. Exam, patient has mild abdominal distention with moderate tenderness palpation of the umbilical area. No guarding or rebound tenderness patient White count of 11.4 today. Around 3:45 PM, patient was taken for CT scan prior to result. neurology technologist Galen performed a preliminary KUB with and noted patient had spines on imaging. CT study was cancelled immediately and patient did not undergo CT evaluation. An incident report was filed. Formal ultrasound showed the patient is 33 weeks . Patient is transferred to the OB floor for further evaluation. Lab Data : 09/09/21 15:48 09/09/21 15:48 Radiology Impressions Obstetrics Ultrasound 09/09/21 16:49 IMPRESSION: 1. Single, viable intrauterine gestation. 2. Estimated gestational age of 33 weeks 2 days. Estimated delivery date by ultrasound is 10/26/2021. 3. Incidental/nonacute findings are listed in the report. Laboratory Results WBC 11.4 10^3/uL (4.0-10.0) H 09/09/21 15:48 RBC 4.11 10^6/uL (4.1-5.3) 09/09/21 15:48 Hgb 12.5 g/dL (11.5-15.3) 09/09/21 15:48 Hct 36.3 % (37.0-47.0) L 09/09/21 15:48 MCV 88.3 fl (81-99) 09/09/21 15:48 MCH 30.4 pg (28.0-34.0) 09/09/21 15:48 MCHC 34.4 g/dL (30.0-36.0) 09/09/21 15:48 RDW 13.2 % (12.1-15.1) 09/09/21 15:48 Plt Count 173 10^3/cmm (130-400) 09/09/21 15:48 MPV 9.1 fL (7.4-10.4) 09/09/21 15:48 Neut % (Auto) 75.0 % 09/09/21 15:48 Lymph % (Auto) 17.4 % 09/09/21 15:48 Chester % (Auto) 5.3 % 09/09/21 15:48 Eos % (Auto) 1.3 % 09/09/21 15:48 Baso % (Auto) 0.3 % 09/09/21 15:48 Neut # (Auto) 8.54 10^3/uL (1.8-7.7) H 09/09/21 15:48 Lymph # (Auto) 2.0 10^3/uL (0.8-4.8) 09/09/21 15:48 Chester # (Auto) 0.6 10^3/uL (0.2-0.9) 09/09/21 15:48 Eos # (Auto) 0.2 10^3/uL (0.0-0.8) 09/09/21 15:48 Baso # (Auto) 0.0 10^3/uL (0.0-0.1) 09/09/21 15:48 Nucleated RBC % (auto) 0 % 09/09/21 15:48 Nucleated RBCs # 0.0 /100WBC 09/09/21 15:48 Sodium 135 mmol/L (136-145) L 09/09/21 15:48 Potassium 4.0 mmol/L (3.5-5.1) 09/09/21 15:48 Chloride 103 mmol/L (98-107) 09/09/21 15:48 Carbon Dioxide 21 mmol/L (22-29) L 09/09/21 15:48 Anion Gap 15.0 (5-19) 09/09/21 15:48 BUN 5 mg/dL (6-20) L 09/09/21 15:48 Creatinine 0.5 mg/dL (0.5-0.9) 09/09/21 15:48 GFR Calculation 143.0 mL/min (90-130) H 09/09/21 15:48 Glucose 83 mg/dL (65-115) 09/09/21 15:48 Calculated Osmolality 276 mOsm/kg (285-295) L 09/09/21 15:48 Calcium 9.1 mg/dL (8.5-10.5) 09/09/21 15:48 Total Bilirubin 0.2 mg/dL (0.15-1.2) 09/09/21 15:48 AST 15 U/L (0-32) 09/09/21 15:48 ALT 16 U/L (0-33) 09/09/21 15:48 Alkaline Phosphatase 170 IU/L (35-105) H 09/09/21 15:48 Total Protein 6.8 g/dL (6.6-8.7) 09/09/21 15:48 Albumin 3.7 g/dL (3.5-5.2) 09/09/21 15:48 Globulin 3.1 g/dL (1.3-4.6) 09/09/21 15:48 Lipase 20 U/L (13-60) 09/09/21 15:48 Urine Color Yellow (Yellow) 09/09/21 16:00 Urine Appearance Clear (CLEAR) 09/09/21 16:00 Urine pH 5 (5-7) 09/09/21 16:00 Ur Specific Moffat 1.015 (1.005-1.030) 09/09/21 16:00 Urine Protein Neg (Negative) 09/09/21 16:00 Urine Glucose (UA) Norm (Normal) 09/09/21 16:00 Urine Ketones Negative (Negative) 09/09/21 16:00 Urine Blood Neg (Negative) 09/09/21 16:00 Urine Nitrate Negative (Negative) 09/09/21 16:00 Urine Bilirubin Neg (Negative) 09/09/21 16:00 Urine Urobilinogen Norm mg/dL (Negative) 09/09/21 16:00 Ur Leukocyte Esterase Negative (Negative) 09/09/21 16:00 Imaging Data Other Imaging: Radiologist's impression: [address] [address] Ultrasound Report Signed Patient: Emely Orozco Unit #: [id number] : 1990 Age/Sex: 31 / F ADM Date: 09/09/21 Loc: OBGYN Room/Bed: OB13-[address]: Radha Demarco MD Ordering Provider/Ordering MD: Estrella Jaimes MD Date of Service: 09/09/21 Procedure(s): US OB limited [id number] Accession Number(s): [id number] Report Number: [id number] PROCEDURE INFORMATION: Exam: US , Limited Exam date and time: 09/09/2021 4:49 PM Age: 31 years old Clinical indication: Pain; Other: She has a hernia at umb. That is bothering her; Gestational age or lmp: 33w2d; ; Prior surgery; Surgery date: 6+ months; Surgery type: x 3. Tubal lig February 22, 2021; Patient HX: PT did not know she was pg. ; Additional info: Likely second trimester TECHNIQUE: Imaging protocol: Real-time ultrasound of the maternal uterus with image documentation. Exam focused on the clinical indication. COMPARISON: No relevant prior studies available. FINDINGS: Gestation: Single, viable intrauterine gestation. heart rate: heart rate (FHR) is 129-153 bpm. lie: Fetus is in a transverse lie with the head to the maternal left. Placenta: The placenta is fundal/anterior. Amniotic fluid: Normal amount of amniotic fluid, with an amniotic fluid index of 15.50 cm using the quadrant method. external genitalia: Images show presumptive male genitalia. BIOMETRY: Gestational age (AUA): Growth parameters are symmetric and consistent with a composite estimated gestational age (EGA) of 33 weeks 2 days. Estimated weight: 1977 g or 4 lb 6 oz. Biparietal diameter (BPD): 8.65 cm. This corresponds to an estimated gestational age of 34 weeks 6 days. Head circumference: 30.75 cm. This corresponds to an estimated gestational age of 34 weeks 2 days. Abdominal circumference (AC): 27.80 cm. This corresponds to an estimated gestational age of 31 weeks 6 days. Femur length (FL): 6.21 cm. This corresponds to an estimated gestational age of 32 weeks 1 day. MATERNAL: Cervix: The cervix is unremarkable. There is no shortening or effacement. The cervix measures 4.3 cm using a transabdominal measurement. Other findings: No gross abnormality of the maternal umbilicus. US/US OB limited [id number] IMPRESSION: 1. Single, viable intrauterine gestation. 2. Estimated gestational age of 33 weeks 2 days. Estimated delivery date by ultrasound is 10/26/2021. 3. Incidental/nonacute findings are listed in the report. ? Dictated By: Fatoumata Naranjo MD Signed By: Fatoumata Naranjo MD Signed Date/Time: 09/09/211820 DD/ [id number] Discharge Plan Discharge Patient Disposition: Admitted As Inpatient Admit Provider: Radha Demarco Clinical Impression: Abdominal pain, , Third trimester Condition: Stable Discharge Diet: Advance as tolerated Discharge Activity: Increase activity as tolerated Coding Level of Care Code ED Equipment Manager for Chg Fwd Exam Comprehensive
[2021-09-09 16:13] LABS: Add Urine Microscopic? NO; Charge for UA Resulting for Rev
[2021-09-09 16:20] LABS: Alanine Aminotransferase 16 U/L (0-33); Albumin Level 3.7 g/dL (3.5-5.2); Alkaline Phosphatase 170 IU/L (35-105); Aspartate Amino Transferase 15 U/L (0-32); Blood Urea Nitrogen 5 mg/dL (6-20); Calcium 9.1 mg/dL (8.5-10.5); Carbon Dioxide 21 mmol/L (22-29); Chloride 103 mmol/L (98-107); Globulin 3.1 g/dL (1.3-4.6); Glucose 83 mg/dL (65-115); Lipase 20 U/L (13-60); Osmolality Calculated 276 mOsm/kg (285-295); Sodium 135 mmol/L (136-145); Total Bilirubin 0.2 mg/dL (0.15-1.2); Total Protein 6.8 g/dL (6.6-8.7)
[2021-09-09 16:24] LABS: Bilirubin Urine Neg (Negative); Blood Urine Neg (Negative); Glucose Urine UA Norm (Normal); Ketones Urine Negative (Negative); Leukocyte Esterase Urine Negative (Negative); Nitrate Urine Negative (Negative); Protein Urine Neg (Negative); Specific Gravity, Urine 1.015 (1.005-1.030); Urine Appearance Clear (CLEAR); Urine Color Yellow (Yellow); Urobilinogen Urine Norm (Negative); pH Urine 5 (5-7)
[2021-09-09] MEDS: famotidine 20 mg/2 mL INJ 40 MG IVP (16:31)
[2021-09-09] MEDS: acetaminophen 500 mg Tablet PO (16:31)
[2021-09-09] MEDS: sodium chloride 0.9% 1,000 ML 999 ML IV (16:32)
--- NOTE | 2021-09-09 16:49 | USR_ITS ---
PROCEDURE INFORMATION: Exam: US , Limited Exam date and time: 09/09/2021 4:49 PM Age: 31 years old Clinical indication: Pain; Other: She has a hernia at umb. That is bothering her; Gestational age or lmp: 33w2d; ; Prior surgery; Surgery date: 6+ months; Surgery type: x 3. Tubal lig February 22, 2021; Patient HX: PT did not know she was pg. ; Additional info: Likely second trimester TECHNIQUE: Imaging protocol: Real-time ultrasound of the maternal uterus with image documentation. Exam focused on the clinical indication. COMPARISON: No relevant prior studies available. FINDINGS: Gestation: Single, viable intrauterine gestation. heart rate: heart rate (FHR) is 129-153 bpm. lie: Fetus is in a transverse lie with the head to the maternal left. Placenta: The placenta is fundal/anterior. Amniotic fluid: Normal amount of amniotic fluid, with an amniotic fluid index of 15.50 cm using the quadrant method. external genitalia: Images show presumptive male genitalia. BIOMETRY: Gestational age (AUA): Growth parameters are symmetric and consistent with a composite estimated gestational age (EGA) of 33 weeks 2 days. Estimated weight: 1977 g or 4 lb 6 oz. Biparietal diameter (BPD): 8.65 cm. This corresponds to an estimated gestational age of 34 weeks 6 days. Head circumference: 30.75 cm. This corresponds to an estimated gestational age of 34 weeks 2 days. Abdominal circumference (AC): 27.80 cm. This corresponds to an estimated gestational age of 31 weeks 6 days. Femur length (FL): 6.21 cm. This corresponds to an estimated gestational age of 32 weeks 1 day. MATERNAL: Cervix: The cervix is unremarkable. There is no shortening or effacement. The cervix measures 4.3 cm using a transabdominal measurement. Other findings: No gross abnormality of the maternal umbilicus. US/ OB limited [id number] IMPRESSION: 1. Single, viable intrauterine gestation. 2. Estimated gestational age of 33 weeks 2 days. Estimated delivery date by ultrasound is 10/26/2021. 3. Incidental/nonacute findings are listed in the report.
[2021-09-09] MEDS: terbutaline 1 mg/mL INJ 0.25 MG SUBCUT (19:11)
[2021-09-09] MEDS: lactated ringers 500 ML 999 ML IV (19:11)
--- NOTE | 2021-09-11 14:58 | DCPLANNER ---
Addendum entered by Parvin Mejia 09/12/21 14:50: Patient had a follow up appointment scheduled for 09.12.21 at [facility] - patient did attend appointment. Original Note: manager commercial sales had message to schedule a follow up appointment for patient with [facility]. manager commercial sales called [facility], spoke with Juanjose, gave clinic patients information. manager commercial sales was told that patients information will be printed and reviewed. Clinic will call patient with appointment information.
== END 2021-09-09 17:45 | disposition admitted as inpatient to this hospital (09) ==
LOC: ER 17:15 → OBGYN 19:51
PROVIDERS: Emergency Provider Emergency Medicine; PCP Nurse Practitioner Family; Visit Provider Family Medicine
DX: O26.893 Other specified pregnancy related conditions, third trimester (principal); R10.9 Unspecified abdominal pain; Z3A.33 33 weeks gestation of pregnancy; O99.333 Smoking (tobacco) complicating pregnancy, third trimester; F17.210 Nicotine dependence, cigarettes, uncomplicated
CPT/HCPCS: 59025; 76815; 80053; 81003; 83690; 85025; 96361; 96372; 96374; 99211; 99284; J3105; J3490; J7030

== ENCOUNTER → 2021-09-11 08:10 | Outpatient (BNVA) | payer MEDICAID, SELFPAY | PROVIDERS: PCP Nurse Practitioner Family; Visit Provider Obstetrics & Gynecology | DX: Z34.80 Encounter for supervision of other normal pregnancy, unspecified trimester (principal) | CPT/HCPCS: 80307; 81000; 82950; 86592; 86762; 86787; 86803; 86850; 86900; 87086; 87340; 87491; 87591; 87806 ==

== ENCOUNTER 2021-09-28 08:14 | Outpatient (CLI) | payer MEDICAID, SELFPAY ==
[2021-09-28] VITALS (12 sets, daily range): BP systolic 105–123; BP diastolic 62–75; PULSE 82–107; RESP 17; TEMP 36.4; BMI 34.8
--- NOTE | 2021-09-28 08:37 | US_ITS ---
WS: [id number] ULTRASOUND OB LIMITED TECHNIQUE: Limited ultrasound examination of the fetus. CLINICAL INFORMATION: decreased movement COMPARISON: September 11, 2021 FINDINGS: Cervix is long and closed measuring 3.8 cm. Single interuterine gestation. presentation is cephalic Placental location is anterior fundal. Placenta grade: 0. heart rate 150 BPM. NANDINI 20.34 greater than the 50th and less than 95th percentile for gestational age EGA : 33 weeks 2 days CAROLYN : November 14, 2021 Biophysical profile 6 out of 8. breathing: Not visualized movement: 2 tone: 2 Amniotic fluid: 2 IMPRESSION 1. Biophysical profile 6 out of 8 2. NANDINI 20.34 greater than the 50th and less than 95th percentile for gestational age 3. Closed cervix measuring 3.3 cm
== END 2021-09-28 10:45 | disposition home or self-care (01) ==
LOC: OPOB 08:18 → OBGYN 08:19
PROVIDERS: PCP Nurse Practitioner Family; Visit Provider Obstetrics & Gynecology
DX: O36.8190 Decreased fetal movements, unspecified trimester, not applicable or unspecified (principal); Z3A.00 Weeks of gestation of pregnancy not specified
CPT/HCPCS: 59025; 76819; 99211

== ENCOUNTER 2021-10-09 02:39 | Inpatient (IN) | payer MEDICAID, SELFPAY ==
[2021-09-28 08:37] VITALS: RESP 17
[2021-10-09] VITALS (29 sets, daily range): BP systolic 96–138; BP diastolic 51–90; PULSE 64–108; RESP 16–18; TEMP 36.2–36.8; O2SAT 94–99; BMI 36.5
[2021-10-09 02:58] LABS: Actim Prom Positive
[2021-10-09] MEDS: betamethasone susp 6 mg/mL 5 mL 12 MG IM (03:02)
[2021-10-09] MEDS: lactated ringers 1,000 ML 999 ML IV ×2 (03:09→03:18)
--- NOTE | 2021-10-09 03:31 | P.HP_ITS ---
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 Orozco is a 31 year old 4 para 2103 with an LMP of 02/07/2022 and an EDC of 11/14/2021 by dates, placing her at 34-6/7 weeks gestation. -Late start to care at 30 weeks She presented to labor and delivery at 2:30 AM on 10/09/2021 with reports of leaking of fluid since about 1 AM. She is pretty tearful because this happened with her last and her baby had to be taken to the NICU. She states that she had 1 or 2 contractions between her membranes rupturing and her coming to the hospital but they were mild. Reports that since reaching the hospital she has been having regular contractions every 3 to 5 minutes and they are starting to get painful. On examination she was noted to be grossly ruptured with clear fluid. Bedside sonogram confirmed breech presentation. She denies vaginal bleeding, nausea vomiting fever chills and she is just worried about the baby. She desires repeat . Review of Systems General: Reports: 10 or more systems reviewed and unremarkable except in HPI and below Const: Denies: fever(s), chills, change in appetite, change in weight, fatigue, malaise or change in sleep pattern Eyes: Denies: change in vision, eye discomfort, eye discharge or seeing flashes ENMT: Denies: throat pain, odynophagia, hoarseness, bleeding gums, ear discharge, nasal discharge or nasal congestion Card: Denies: chest pain, irregular heart rhythm, edema, swelling of feet/ankles, dyspnea on exertion or leg pain with exertion Resp: Denies: dyspnea, productive cough, wheezing or chest congestion GI: Reports: abdominal pain; Denies: nausea, vomiting, heartburn, diarrhea, constipation, change in bowel habits or hematochezia : Reports: vaginal discharge; Denies: flank pain, dysuria, urinary frequency, urinary urgency, urinary incontinence, genital lesions, vaginal odor, vaginal bleeding, dysmenorrhea, change in menstrual flow, prolapse symptoms, dyspareunia or sexual dysfunction Musc: Denies: neck pain, back pain, joint pain, joint swelling or muscle cramps Skin/Breast: Denies: rash, pruritus, breast tenderness, nipple discharge or breast mass Neuro: Denies: headache(s), numbness in extremities or seizure-like activity Psych: Denies: anxiety, depression, mood swings or change in appetite Endo: Denies: cold intolerance, flushing, hot flashes or change in body appearance Juan Carlos/Lymph: Denies: easy bruising, easy bleeding or enlarged lymph nodes All/Imm: Denies: urticaria, tongue swelling, acute wheezing or itchy eyes Medications/Allergies Home Medications Medication Instructions Recorded Confirmed Last Taken Type prenat.vits,tyrone,maw-tzbx-naekh 1 tab PO DAILY 09/18/21 10/03/21 Unknown History Allergies Allergy/AdvReac Type Severity Reaction Status Date / Time codeine Allergy [id number]-gtv Verified 10/03/21 08:06 take hydrocodone meperidine [From Demerol] Allergy ADR/ALGY-Hy Verified 10/03/21 08:06 potension PFSH 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 Has not had an EGD prior. No pertinent past medical history Denies diabetes, asthma, hypertension, seizures, DVT/PE PCP: LORE Kim Surgical History History of x 2 ----> 2012 and 2019 S/P laparoscopic cholecystectomy May 2020 [place] [facility] post tubal ligation 02/22/2021---laparoscopic bilateral total salpingectomy for sterilization [place] Fink [place] [facility] ---->, Omental adhesions which were taken down, dense additions of uterus onto bladder and anterior abdominal. 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 Normal tubes and ovaries. -----> pathology showed total transection, benign pathology Family History Grandfather Diabetes maternal Grandmother Breast cancer maternal, diagnosed at age 59 Denies family history of Colon cancer Ovarian cancer Heart disease Hyperlipidemia Hypertension Uterine cancer Thyroid condition Stroke Supplemental PFSH Information: - Tobacco Use: Started smoking at age 16 and currently smokes 1/4 pack per day. Drug Use: Denies Alcohol Use: Drinks once yearly on average. 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 Last Well Woman Appointment: 2018 per patient Other Female Reproductive History: Menstrual History Comment: Menarche at the age of 9 with regular 28-day cycles lasting for 3 to 5 days. She states that the first couple of days are pretty heavy with a lot of cramping. Sexual History: Sexual History Comment: Coitarche at age 16, less than 5 lifetime partners, sexually active in 2018 and then once before her tubal ligation. She now has a new partner-Jeremy who works on the [employer]. She has been with him since April 2021 STD History Comment: Denies history of sexually transmitted diseases Contraception: Contraception History Comment: She has used Depo-Provera, the NuvaRing and control pills in the past for contraception. She really did not like Depo-Provera because it made it hard for her to lose weight and it affected her moods. The NuvaRing made her gain weight. She overall did best with the pill however was not a very good pill taker. ---> Total salpingectomy performed for sterilization on 02/22/2021 History History History 4 Term 2 Miscarriages/Ectopic 0 1 Living Children 3 Other History: 4 Para 2103 x 1 CD x 2, 1--> 07/30/2008, female,(Lana), 6 lbs 2 ozs, 37 wks, epidural, vaginal delivery by by Dr. Keene at [place], [place]. Delivery was uncomplicated. 2--> 02/12/2013, female,(Lauren), 7 lbs 6 ozs, 39 wks, spinal anesthesia, section for breech presentation by by Dr. Ferreira at [place], [place]. Delivery was uncomplicated. 3--> 08/26/2019, male,(Yunier), 4 lbs 0 ozs, 34 wks, spinal, repeat section by Dr. Ferreira at [facility], [place]. Delivery was uncomplicated. She states that she had spontaneous rupture of membranes requiring delivery at 34 weeks 4--->Current Care CAROLYN Calculator Estimated Delivery Date Method Current WG Current Estimate 11/14/21 LMP (Certain) 34w 6d Expected Delivery Route/Plan Repeat delivery scheduled for 11/08/2021 at 39 weeks and 1 day--this has been scheduled Specific Issues/Plans * Previous delivery x2 for repeat [id number]-[id number] * Late start of care at 30 weeks * Exposure to teratogenic material-declined MFM * Incomplete anatomy-we will reassess at 36 weeks-declined MFM * History of PPROM-monitor * Bicornuate uterus-sonogram for growth * Tobacco use-cessation discussed Vitals/I&O/Wt Last Vital Signs Pulse 108 H 10/09/21 02:27 Resp 16 10/09/21 03:19 BP 138/90 10/09/21 02:27 10/08/21 10/08/21 10/09/21 14:59 22:59 06:59 Intake Total 149.85 / 149.85 Balance 149.85 / 149.85 Weight last 48 hrs Weight 206 lb Physical Exam Narrative: General: well developed, obese Neuro/Psych: alert, oriented to time, place and person. Neck: No thyromegaly Heart: S1-S2 heard, regular rate and rhythm. Lungs: Clear to auscultation bilaterally. Breast: Deferred Abdomen: Soft, obese, gravid, nontender, contractions palpable Legs: No pedal edema no calf tenderness. Negative Homans sign Back: No CVA tenderness Skin: Normal over abdomen--Pfannenstiel incision from previous noted. Cervix-1 cm, 40% -5 station. No presenting part palpable. Results OB Labs LABS: --- 4 [place]20[place] CBC: 11.4<12.5/36.3> 173 BUN/creatinine-5/0.5 AST/ALT-15/16 09/11/2021 Blood type:? O positive Antibody screen : Negative Cystic fibrosis: Negative on 07/23/2012-old Symptify Rubella : Immune Varicella: Immune Hepatitis B surface antigen: Nonreactive Hepatitis C antibody: Nonreactive RPR: Nonreactive HIV: Nonreactive Drug screen: Negative Urine culture: 10,000-20,000 contaminants, no GBS NIPT: Declined Gonorrhea: Negative Chlamydia: Negative Pap smear: Up-to-date Quad screen/ AFP: Too late GCT: 107 10/09/2021[place] GBS: COVID: [employer]CH[employer] Labs 09/11/2021--- 4 Blood type:? O positive Antibody screen : Negative Cystic fibrosis: Negative on 07/23/2012-old [employer] Rubella : Immune Varicella: Immune Hepatitis B surface antigen: Nonreactive Hepatitis C antibody: Nonreactive RPR: Nonreactive HIV: Nonreactive PAP Patient denies history of abnormal pap smears. 04/2022---cotesting due---we will perform 05/10/2019---(Dr. Ferreira)------> negative for intraepithelial lesion or malignancy(scanned) OB Ultrasound 4 LMP-02/07/2021? ? ? CAROLYN by LMP-11/14/2021 1) 09/09/2021[place] ? ? AUA-33w2d? CAROLYN by sono-10/26/2021 ? ? ? S=D ------------> single live intrauterine , gestational age of 33 weeks and 2 days, EFW 4 pounds 6 ounces, 1977 g, fundal anterior grade 1 placenta with normal fluid-NANDINI 15.5 cm, male, cervix is closed measuring 4.3 cm. 2) 09/11/2021([facility]anatomy)? ? ? AUA-33w2d ? ? CAROLYN by sono-10/28/2021 ? S=D ------------> single live intrauterine , breech, fundal anterior grade 1 placenta without previa, FLOOR LAYER TILE 6.5 cm, cervix closed measuring 3.4 cm, EFW 2044 g, 4 pounds 8 ounces, 92 percentile. Visualized anatomy appears normal except for nonvisualization of Profile, Nose & Lips, spine, cord insertion, bilateral feet.? Recommend level 2 sonogram to assess the structures. Exam limited by advanced gestational age. 3) 09/30/2021([facility]-growth/yair) AUA-35w5d CAROLYN by sono-11/08/2019 S=D -----------> single live intrauterine , breech, fundal anterior grade 1 placenta without previa, NANDINI 24.9 cm, FLOOR LAYER TILE-, EFW 2742 g, 6 pounds 1 ounce, 73rd percentile, cervix appeared closed measuring 4 cm. Profile spine nose and lips, cord insertion and feet visualized and appear within normal limits. Again anatomy is limited by advanced gestation. Mammogram Has never needed a mammogram Colonoscopy Has never needed a colonoscopy A&P Assessment and plan (1) Evaluate anatomy not seen on prior sonogram: Status: Acute (2) Previous delivery affecting , antepartum: Status: Acute (3) History of delivery, currently : Status: Acute (4) Use of medication with teratogenic potential in female of reproductive age: Status: Acute (5) Tobacco use affecting , antepartum: Status: Acute (6) Supervision of high risk , antepartum: Status: Acute (7) Bicornuate uterus: Status: Acute (8) premature rupture of membranes: Status: Acute Plan 1. PREMATURE RUPTURE OF MEMBRANES at 34 weeks and 6 days -Reviewed with Ms. Orozco that she is 34 weeks and 6 days and has rupture of membranes and it sounds like she may be in early labor with regular contractions that are painful. Given this I would recommend delivery. Since she has had 2 previous and baby is breech I would recommend a repeat and she is agreeable with this. -We will given that she is lupe and likely labor would not recommend transfer especially because she is getting significantly uncomfortable. -Reviewed risk of prematurity. Discussed that after delivery depending on her son is doing a may need to transfer him. If that happens she will need to stay after she is recovered from her and she will not be able to travel with baby. She is familiar with this because its exact scenario happened with her previous . -Reviewed risks of surgery including bleeding, infection, anesthesia risk, damage to surrounding organs. Again reviewed the time of her tubal ligation she had significant adhesions. Reviewed risk of injury to the bladder and the bowels. Consent for repeat signed today -We will give single dose of steroids now and this was given at 3:15 AM on 10/09/2021. -We will collect GBS and COVID swab. -CBC, type and screen and full admit -Anesthesia and Dr. Lea-dog or animal sitter on-call were notified and will be present. To proceed to operating room for repeat 2) PREVIOUS SECTION x 2 -At her first for breech presentation at term in her second at 34 weeks for?PPROM. -Discussed that given these 2 previous C-sections I would recommend a repeat C- section.? Discussed the option of trial of labor however patient is not interested in this and desires to proceed with repeat -Placenta is fundal anterior-lower risk for placentation abnormalities -We will plan for repeat at 39 weeks and 1 days-11/08/2021---this has been scheduled.? Lorraine scheduled on Labor and Delivery. 3)TOBACCO USE IN -Risks of tobacco use during discussed with patient including IUGR, labor. She understands this -30, 31, 34 weeks--is now smoking quarter pack of cigarettes a day and will work on cutting down -Encouragement provided to patient today 4)TERATOGEN EXPOSURE IN -Patient has been exposed to teratogenic material throughout the .? Likely shortly after conception she was exposed to general anesthesia for her tubal ligation.? She also received MMR and varicella vaccination in August 2021 when she did not realize she was --she was likely about 26 weeks at that time.? She denies any alcohol exposure -Discussed case with [facility] Dr. Webster and he states that this point there is anything to do.? He would recommend a left ultrasound.? He states that when appropriate places for MMR and varicella were given because to know adverse outcomes. -Discussed that I did speak to Dr. Webster from [facility] and he states that there is nothing to be done at this time although the few anecdotal cases where patients have received these vaccines has shown no poor outcome.? He would recommend a level 2 sonogram -I discussed that I would recommend a level 2 sonogram especially given this history and for incomplete anatomy.? 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 Discussed the other [facility] offices.? She states that her child is in to be sent up to [place] and I discussed that there is an MFM clinic up there.? She states that she will only see the MFM doctors that if they are able to get her in on the same day that she takes her daughter.? Discussed that there is no way that I can guarantee this but I will try my best.? If she is unable to get this coordinated she states that she is fine to just deal with it when the baby comes.? She understands that this is not my recommendation -S states that she has an appointment with the pediatric care coordinator in [place] on 10/23/2021.? She states that her appointment there is at 11 AM and if there is an MFM doctor in [place] she would be willing to try to see them only on that day if timing works out.? She states that she would rather just not bother her as she does not have time to do this. -I will try to see if there is an MFM specialist in [place] for referral but I discussed with Ms. Orozco that if this is not possible we will try to do a repeat ultrasound here for both growth and anatomy at 36 weeks and she is agreeable with this 5)BICORNUATE UTERUS-ANTEPARTUM -Likely bicornuate--based on appearance at time of laparoscopy. -I discussed with patient that the bicornuate uterus does increase risk for malpresentation. It is not a contraindication to her trial of labor but the only recommendation I would make is if she does have fetus in breech presentation I would not recommend version. She understands this. -Also discussed increased risk of growth restriction with uterine anomalies and I would recommend growth sonograms in the third trimester-- 32, 36 weeks and she is agreeable with this.? - growth at 31 weeks was in the 92nd percentile -Plan for sonogram at 36 weeks for growth 6) HISTORY OF DELIVERY-PPROM AT 34 WEEKS -Has had 2 previous full-term deliveries.? Did have spontaneous premature rupture of membranes at 34 weeks with her last in 2019 requiring a repeat . -Reviewed that while she is at a higher risk of having this happen again she has had 2 full-term deliveries and it is too late for any intervention at this time.? She understands this - labor precautions reviewed -No further intervention at this time-MFM referral recommended-see discussion above Attestations Medical Necessity Statement*: Patient will need to stay for more than 2 midnights to recover from surgery. Coding Level of Care Code Acute Blood Splatter Analyst for Chg Fwd Diagnoses Evaluate anatomy not seen on prior sonogram Previous delivery affecting , antepartum O34.219 History of delivery, currently O09.899 Use of medication with teratogenic potential in female of reproductive age Z79.899 Tobacco use affecting , antepartum O99.330 Supervision of high risk , antepartum O09.90 Bicornuate uterus Q51.3 premature rupture of membranes O42.919
[2021-10-09] MEDS: citric acid-sodium citrate 30 mL UDC PO (04:05)
[2021-10-09] MEDS: metoclopramide 5 mg/mL SDV 2 mL 10 MG IVP (04:06)
[2021-10-09 04:13] LABS: Basophils # 0.1 10^3/uL (0.0-0.1); Basophils % 0.3 %; Eosinophils # 0.2 10^3/uL (0.0-0.8); Eosinophils % 1.4 %; Hematocrit 35.9 % (37.0-47.0); Hemoglobin 12.4 g/dL (11.5-15.3); Mean Corpuscular HGB Conc 34.5 g/dL (30.0-36.0); Mean Corpuscular Hemoglobin 30.4 pg (28.0-34.0); Mean Platelet Volume 9.9 fL (7.4-10.4); Monocytes # 0.9 10^3/uL (0.2-0.9); Monocytes % 5.8 %; Neutrophils # 11.67 10^3/uL (1.8-7.7); Nucleated Red Blood Cells % 0 %; Platelet Count 197 10^3/cmm (130-400); Red Blood Count 4.08 10^6/uL (4.1-5.3); Red Cell Distribution Width 13.3 % (12.1-15.1)
[2021-10-09 05:36] LABS: Adenovirus Not Detected (NOT DETECT); Chlamydia Pneumoniae Not Detected (NOT DETECT); Coronavirus 229E,HKU1,NL63,OC4 Not Detected (NOT DETECT); Human Metapneumovirus Not Detected (NOT DETECT); Human Rhinovirus/Enterovirus Not Detected (NOT DETECT); Influenza A Not Detected (NOT DETECT); Influenza A H1 Not Detected (NOT DETECT); Influenza A H1-2009 Not Detected (NOT DETECT); Influenza A H3 Not Detected (NOT DETECT); Influenza B Not Detected (NOT DETECT); Mycoplasma Pneumoniae Not Detected (NOT DETECT); Parainfluenza Virus Type 1 Not Detected (NOT DETECT); Parainfluenza Virus Type 2 Not Detected (NOT DETECT); Parainfluenza Virus Type 3 Not Detected (NOT DETECT); Parainfluenza Virus Type 4 Not Detected (NOT DETECT); Respiratory Syncytial Virus A Not Detected (NOT DETECT); Respiratory Syncytial Virus B Not Detected (NOT DETECT); SARS-COV-2 Not Detected (NOT DETECT)
--- NOTE | 2021-10-09 06:06 | P.OP_ITS ---
Operative Report Date of procedure: October 09, 2021 OPERATIVE REPORT Date of surgery: 10/09/2021 Date of dictation: 10/09/2021 Preoperative diagnosis: Previous delivery x2, premature rupture of membranes at 34 weeks and 6 days, tobacco use, late start of care at 30 weeks, bicornuate uterus, exposure to teratogens. Postoperative diagnosis/findings: Same, bicornuate uterus with gestation in the right horn. Dense additions of bladder and peritoneum onto the uterus. Baby boy weighing 5 pounds 13 ounces, Apgars 8/9, clear fluid, moriah breech presentation, normal ovaries bilaterally, no tubes. Procedure done: Repeat low transverse delivery via Pfannenstiel incision. Specimens removed/disposition of specimens: Placenta and cord-discarded Surgeon: Dr. Doris Fink assistant merchandiser: Ioana Heredia Anesthesia: Spinal anesthesia Estimated blood loss: 800 ml Intravenous fluids: 1500 mL of LR Urine output: 250 mL of clear urine at the end of procedure Medications: As per anesthesia records Complications: None, both baby and mother were left to recover in a stable condition PROCEDURE: After consent was obtained, patient was taken to the operating room where spinal anesthesia was placed without difficulty. She was placed supine on the table with a left lateral wedge. Riddle catheter and SCDs were placed. The abdomen was shaved and then prepped with duo prep. Vaginal prep with Betadine was performed. She was draped in a sterile fashion. After checking adequacy of anesthesia, a Pfannenstiel incision was made 2 cm above the pubic symphysis over her old scar The incision was carried down to the fascia using the Bovie. The fascia was nicked in the midline and the fascial incision was extended laterally using curved Mayos. The inferior aspect of the fascia was grasped with naz clamps and dissected off from the underlying rectus muscle. This was repeated again superiorly without any difficulty. The rectus muscle was sharply is able to deodorant. A wesley was made in the peritoneum sharply and adhesions were noted from the peritoneum to the anterior uterine wall which were taken down after ensuring it was sufficiently away from the bladder. Once this was done no other additions were noted. the peritoneal incision was carried inferiorly taking care to proceed in layers so as to avoid the bladder. The peritoneal incision was extended superiorly as well. The uterus was noted to be rotated to the left. The uterus was confirmed to be bicornuate with a large right horn and a smaller left horn. The lower uterine segment was thin. The bladder peritoneum was grasped with smooth forceps a bladder flap was created. the bladder blade was replaced thus protecting the bladder. A LOW TRANSVERSE UTERINE INCISION was made with a scalpel till the amniotic membrane was reached. The uterine incision was then extended laterally using bandage scissors. Amniotomy was done with Allis clamps and clear amniotic fluid was drained. The breech of the baby was a presenting part and was delivered up until the level of the knees. The knees are extended and with gentle pressure on the popliteal fossa the knees were delivered. The body was wrapped in a towel and delivered up to the level of the scapula after which the arms were swe pt over the chest and delivered on to the level of the head. The uterine incision was extended and the head delivered. The nose and mouth were suctioned, the umbilical cord was clamped and cut and the baby was handed off to the waiting vp training, Dr. Munson. The placenta was delivered spontaneously with fundal massage. It was noted to be intact and was discarded. The interior of the uterus was cleaned of all clot and debris and was noted to be lupe well. The uterus was unable to be exteriorized. Laps were placed to pack the bowel. The uterine incision was closed with 0 Vicryl in a running interlocking manner. Good hemostasis and reapproximation was obtained. [id number]-hn-[id number] sutures were placed to obtain hemostasis. The abdomen was irrigated and the gutters were cleaned of clot and debris. Normal ovaries were noted bilaterally. Bilateral tubes were not seen consistent with history of surgery The uterus uterine incision was noted to be hemostatic. Area where the lesion was taken down near the fundus was oozing and running interlocking sutures were placed and good hemostasis was achieved. Surgicel was placed over this and Interceed was placed over the uterine incision to decrease formation of adhesions. The peritoneum was closed with a 2-0 plain in a continuous stitch along with the rectus muscle as they were inseparable. Good hemostasis was noted in the rectus muscle layer. The fascia was inspected for any defects and none were found and the fascia was closed with 0 looped PDS in continuous stitch. The subcutaneous plane was then irrigated and hemostasis was obtained using the Bovie. The subcutaneous plane was then reapproximated using 2-0 plain suture in a continuous manner. The skin was then closed with 4-0 Monocryl in a subcuticular fashion. Good reapproximation and hemostasis was noted. Steri- Strips were applied. The incision was dressed with Telfa ,ABD and paper tape. The fundus was noted to be firm at the end of the procedure and excess blood was expressed from the vagina. The patient was left to recover in a stable condition. This documentation was created by [employer] food science professor software (known for inherent food science professor error). Every effort was made to assure accuracy of food science professor. Any obvious errors or omissions should be clarified with the author of the document. Pre-op diagnosis: Preop Diagnosis Multiparity desiring sterilization
--- NOTE | 2021-10-09 07:23 | PC.NURSE ---
mother assisted with positioning nipple shield and latching baby. 24mm shield issued
[2021-10-09] MEDS: ibuprofen 800 mg tablet PO (14:36)
[2021-10-09] MEDS: dextrose 5%-lactated ringers 1,000 ML 100 ML IV (15:13)
[2021-10-09 18:00] LABS: Hematocrit 31.1 % (37.0-47.0); Hemoglobin 10.8 g/dL (11.5-15.3); Mean Corpuscular HGB Conc 34.7 g/dL (30.0-36.0); Mean Corpuscular Hemoglobin 30.4 pg (28.0-34.0); Mean Corpuscular Volume 87.6 fl (81-99); Mean Platelet Volume 9.9 fL (7.4-10.4); Platelet Count 189 10^3/cmm (130-400); Red Blood Count 3.55 10^6/uL (4.1-5.3); Red Cell Distribution Width 13.2 % (12.1-15.1); White Blood Count 25.6 10^3/uL (4.0-10.0)
--- NOTE | 2021-10-09 23:30 | PC.NURSE ---
MOB educated on safe sleeping with baby. If MOB feels tired she should put the baby down in an empty crib.
--- NOTE | 2021-10-09 23:30 | PC.NURSE ---
At 2330 this nurse rounded on pt. MOB states My baby scared me a few minutes ago. When this nurse asked MOB what had happened MOB stated I was holding my baby and must have fallen asleep. I woke up to him rolling down me, I was able to catch him by his foot and he didn't hit his head or anything. This nurse stated she would do an assessment on baby and vital signs. This nurse asked Thaddeus Padgett into the room to help assess and explained what the MOB had previously stated. MOB then stated That's not what I said, I said my baby rolled off my arms onto the bed and I caught him by the waist. At [address] Munson of the situation, no new orders received.
[2021-10-10 00:30] VITALS: BP 109/67; PULSE 78; RESP 16; TEMP 36.8
[2021-10-10] MEDS: ibuprofen 800 mg tablet PO ×4 (01:52→21:18)
--- NOTE | 2021-10-10 07:36 | PM.PN ---
Subjective Subjective: SUBJECTIVE: Ms. Orozco is doing well. She states that her pain is well controlled with just ibuprofen. She is ambulating well. She is voiding freely after removal of the catheter. She states that her milk is not yet coming in so she is supplementing her baby and breast-feeding. She denies heavy vaginal bleeding abdominal pain, fever, chills, shortness of breath and chest pain. She has been using the incentive spirometer. She has not yet passed flatus OBJECTIVE/PHYSICAL EXAM: Gen.: No acute distress Heart: S1-S2 heard, regular rate and rhythm Lungs: Clear to auscultation bilaterally Abdomen: Soft, fundus firm below umbilicus, tenderness around incision. Incision: Clean dry and intact with Steri-Strips--dressing removed Legs: No calf tenderness, trace bilateral pitting pedal edema. ASSESSMENT AND PLAN: 31-year-old 4 para 2-2-0-4 status post repeat delivery--post operative day #1 -Continue routine postoperative care. -Encourage ambulation and incentive spirometer use -P.o. pain medication to control pain -If she is doing well by noon we will plan on discontinuing IV -Advance to regular diet once she passes flatus -Anticipate discharge home in the next 1 to 2 days depending on how she is doing - consult Vitals/I&O/Wt Last Vital Signs Temp 98.2 F 10/10/21 00:30 Pulse 78 10/10/21 00:30 Resp 16 10/10/21 00:30 BP 109/67 10/10/21 00:30 Pulse Ox 96 10/09/21 16:00 10/09/21 10/10/21 10/10/21 22:59 06:59 14:59 Output Total 1550 / 3500 800 / 4300 Balance -1550 / -2000 -800 / -2800 Weight last 48 hrs Weight 206 lb Physical Exam Urinary Catheter Management: Riddle Latex: Cath Placed During This Visit: yes, but has since been removed by the nurse Reason for Continuing Indwelling Catheter: Decision to DC Catheter Urinary Catheter Date of Insertion: 10/09/21 Urinary Catheter Time of Insertion: 04:22 Date Urinary Catheter Removed: 10/09/21 Time Urinary Catheter Discontinued: 17:50 Data : 10/09/21 17:45 Attestations Medical Necessity Statement*: Patient will need to stay for 1-2 more midnights to recover from surgery Coding Level of Care Code Acute Goat Herder for Jimmy Gutierrez
[2021-10-10] MEDS: prenatal vitamin Capsule 1 CAP PO (09:13)
[2021-10-10] MEDS: docusate sodium 100 mg Capsule PO ×2 (09:14→17:54)
--- NOTE | 2021-10-10 09:15 | PC.NURSE ---
Entered pt room to administer morning meds and found patient to be tearful. Pt answered phone call while this television writer was in room and pt was discussing being hotlined. Pt reported to person on phone that everything was fine and they aren't going to do anything about it . This nurse sat down an discussed the hotline process with pt. Discussed that because she had late start to care that she met our criteria to be hotlined. Discussed that we hotline to make sure that our patients have resources they need and that being hotlined is not a way of being reprimanded for starting care late. Pt was very tearful and pt started, I know how the system works. 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 I'm working on bettering myself, I am finishing my college degree, I have a lot going on, and now I had to have a and all of this, its just a lot and I don't have time for this and I won't deal with this. Pt stated that the previous nurse made her feel like she was being hotlined because it was her fault and she had done something wrong. Pt reported, It wasn't my fault, I didn't even know I was . Reassured pt that all was well and that [facility] dismissed the call and reported it was of no concern to them.
[2021-10-10 10:31] VITALS: BP 128/79; PULSE 72; RESP 16; TEMP 36.7; O2SAT 97
[2021-10-10] MEDS: nicotine 7 mg Patch 1 PATCH TRANSDERMA (14:20)
[2021-10-10 15:42] VITALS: BP 130/78; PULSE 96; RESP 16; TEMP 36.6; O2SAT 97
[2021-10-10 21:18] VITALS: BP 128/78; PULSE 90; RESP 16; TEMP 36.7; O2SAT 98
[2021-10-10] MEDS: simethicone 80 mg Chew PO (23:20)
[2021-10-11 04:50] VITALS: BP 131/85; PULSE 88; RESP 18; TEMP 36.6; O2SAT 97
[2021-10-11 05:42] LABS: Basophils % 0.3 %; Eosinophils # 0.3 10^3/uL (0.0-0.8); Eosinophils % 2.2 %; Hematocrit 31.9 % (37.0-47.0); Hemoglobin 10.8 g/dL (11.5-15.3); Lymphocytes # 1.9 10^3/uL (0.8-4.8); Lymphocytes % 16.1 %; Mean Corpuscular HGB Conc 33.9 g/dL (30.0-36.0); Mean Corpuscular Hemoglobin 30.2 pg (28.0-34.0); Mean Corpuscular Volume 89.1 fl (81-99); Mean Platelet Volume 9.7 fL (7.4-10.4); Monocytes # 0.8 10^3/uL (0.2-0.9); Monocytes % 6.7 %; Neutrophils # 8.58 10^3/uL (1.8-7.7); Neutrophils % 74.1 %; Nucleated Red Blood Cells % 0 %; Platelet Count 160 10^3/cmm (130-400); Red Blood Count 3.58 10^6/uL (4.1-5.3); Red Cell Distribution Width 13.4 % (12.1-15.1); White Blood Count 11.6 10^3/uL (4.0-10.0)
[2021-10-11 07:15] VITALS: BP 130/85; PULSE 101; RESP 18; TEMP 36.9
[2021-10-11] MEDS: ibuprofen 800 mg tablet PO (07:15)
[2021-10-11] MEDS: prenatal vitamin Capsule 1 CAP PO (07:15)
[2021-10-11] MEDS: simethicone 80 mg Chew PO (07:15)
[2021-10-11] MEDS: ferrous sulfate EC 325 mg Tablet PO (07:15)
[2021-10-11] MEDS: docusate sodium 100 mg Capsule PO (07:15)
--- NOTE | 2021-10-11 08:44 | PM.OBGYDC ---
Discharge Providers CENTRIFUGE SEPARATOR TENDER Date of Admission: 10/09/21 02:39 Date of Discharge: 10/11/21 Attending Provider at Admission: Doris Wilder MD Attending Provider at Discharge: Doris Wilder MD - PRE-DELIVERY DIAGNOSIS: 31-year-old 4 para 2-1-0-3 at 34 weeks and 6 days premature rupture of membranes-clear fluid Previous delivery x2 Incomplete anatomy Exposure to teratogenic medication in Tobacco use in Bicornuate uterus POST-DELIVERY DIAGNOSIS: Repeat low transverse delivery on 10/09/2021 via Pfannenstiel incision DELIVERING PHYSICIAN: Doris Fink FACWENDY PREDELIVERY COURSE Ms. Orozco is a 31 year old 4 para 2102 with an LMP of 02/07/2022 and an EDC of 11/14/2021 by dates, placing her at 34-6/7 weeks gestation. -Late start to care at 30 weeks She presented to labor and delivery at 2:30 AM on 10/09/2021 with reports of leaking of fluid since about 1 AM.? She is pretty tearful because this happened with her last and her baby had to be taken to the NICU.? She states that she had 1 or 2 contractions between her membranes rupturing and her coming to the hospital but they were mild.? Reports that since reaching the hospital she has been having regular contractions every 3 to 5 minutes and they are starting to get painful.? On examination she was noted to be grossly ruptured with clear fluid.? Bedside sonogram confirmed breech presentation.? She denies vaginal bleeding, nausea vomiting fever chills and she is just worried about the baby.? She desires repeat . HOSPITAL COURSE: She underwent an uncomplicated repeat delivery on 10/09/2021-see operative report for details. She did well on day 0 and was ambulating well, tolerating full liquid diet, voiding freely, passing flatus. She was breast-feeding without difficulty and bonding well with her son. Circumcision was performed by Dr. Lea. Pain was well-controlled with by mouth pain medication. She denied nausea, vomiting, fever, chills, shortness of breath, leg pain. She had moderate vaginal bleeding. On day # 1 she continued to do well with stable vital signs and stable hemoglobin at 10.8. White count was a little elevated likely secondary to steroid injection she received prior to surgery for lung maturity of fetus. She passed gas and was tolerating regular diet and denied any problems. On postoperative day #2 she continued to do well with stable vital signs and white count had come down to 11. Hemoglobin was stable. She was discharged home on day 2 in a stable condition, as she preferred to [place] with baby. Warning signs for endometritis, mastitis, DVT/PE, wound infection were reviewed with her. Post delivery activity restrictions were also reviewed with her at all her questions were answered to her satisfaction. She has already had a tubal ligation for sterilization. EXAM AT DISCHARGE: Gen.: No acute distress Heart: S1-S2 heard, regular rate and rhythm Lungs: Clear to auscultation bilaterally Abdomen: Soft, fundus firm below umbilicus, tenderness around incision. Incision: Clean dry and intact with Steri-Strips. Legs: No calf tenderness, no pedal edema. CONDITION AT DISCHARGE: Stable This documentation was created by [employer] digital asset coordinator software (known for inherent digital asset coordinator error). Every effort was made to assure accuracy of digital asset coordinator. Any obvious errors or omissions should be clarified with the author of the document. Primary Care Provider: Radha Perdue APN Diagnoses at Discharge Discharge Diagnosis (1) Evaluate anatomy not seen on prior sonogram: Status: Acute (2) Previous delivery affecting , antepartum: Status: Acute (3) History of delivery, currently : Status: Acute (4) Use of medication with teratogenic potential in female of reproductive age: Status: Acute (5) Tobacco use affecting , antepartum: Status: Acute (6) Supervision of high risk , antepartum: Status: Acute (7) Bicornuate uterus: Status: Acute (8) premature rupture of membranes: Status: Acute Reason for Visit Reason for Visit: POSSIBLE SROM Information Peripartum Data: Delivery Method: Physical Exam Urinary Catheter Management: Riddle Latex: Cath Placed During This Visit: yes, but has since been removed by the nurse Reason for Continuing Indwelling Catheter: Decision to DC Catheter Urinary Catheter Date of Insertion: 10/09/21 Urinary Catheter Time of Insertion: 04:22 Date Urinary Catheter Removed: 10/09/21 Time Urinary Catheter Discontinued: 17:50 History History History 4 Term 2 Miscarriages/Ectopic 0 1 Living Children 3 Other History: 4 Para 210 x 1 CD x 2, 1--> 07/30/2008, female,(Lana), 6 lbs 2 ozs, 37 wks, epidural, vaginal delivery by by Dr. Keene at [place], [place]. Delivery was uncomplicated. 2--> 02/12/2013, female,(Lauren), 7 lbs 6 ozs, 39 wks, spinal anesthesia, section for breech presentation by by Dr. Ferreira at [place], [place]. Delivery was uncomplicated. 3--> 08/26/2019, male,(Yunier), 4 lbs 0 ozs, 34 wks, spinal, repeat section by Dr. Ferreira at [place], [place]. Delivery was uncomplicated. She states that she had spontaneous rupture of membranes requiring delivery at 34 weeks 4--->Current Discharge Data Studies Completed and Pending Pending at discharge Category Date Time Status Group B Streptococcus Culture Stat Lab 10/09/21 02:57 Results Laboratory Results WBC 11.6 10^3/uL (4.0-10.0) H 10/11/21 05:30 RBC 3.58 10^6/uL (4.1-5.3) L 10/11/21 05:30 Hgb 10.8 g/dL (11.5-15.3) L 10/11/21 05:30 Hct 31.9 % (37.0-47.0) L 10/11/21 05:30 MCV 89.1 fl (81-99) 10/11/21 05:30 MCH 30.2 pg (28.0-34.0) 10/11/21 05:30 MCHC 33.9 g/dL (30.0-36.0) 10/11/21 05:30 RDW 13.4 % (12.1-15.1) 10/11/21 05:30 Plt Count 160 10^3/cmm (130-400) 10/11/21 05:30 MPV 9.7 fL (7.4-10.4) 10/11/21 05:30 Neut % (Auto) 74.1 % 10/11/21 05:30 Lymph % (Auto) 16.1 % 10/11/21 05:30 [place] % (Auto) 6.7 % 10/11/21 05:30 Eos % (Auto) 2.2 % 10/11/21 05:30 Baso % (Auto) 0.3 % 10/11/21 05:30 Neut # (Auto) 8.58 10^3/uL (1.8-7.7) H 10/11/21 05:30 Lymph # (Auto) 1.9 10^3/uL (0.8-4.8) 10/11/21 05:30 [place] # (Auto) 0.8 10^3/uL (0.2-0.9) 10/11/21 05:30 Eos # (Auto) 0.3 10^3/uL (0.0-0.8) 10/11/21 05:30 Baso # (Auto) 0.0 10^3/uL (0.0-0.1) 10/11/21 05:30 Nucleated RBC % (auto) 0 % 10/11/21 05:30 Nucleated RBCs # 0.0 /100WBC 10/11/21 05:30 Insulin-like GF I Positive 10/09/21 02:45 Coronavirus 229E (PCR) Not detected (NOT DETECT) 10/09/21 03:50 SARS-CoV-2 (PCR) Not detected (NOT DETECT) 10/09/21 03:50 Vitals Last Vital Signs Temp 97.9 F 10/11/21 04:50 Pulse 88 10/11/21 04:50 Resp 18 10/11/21 04:50 BP 131/85 10/11/21 04:50 Pulse Ox 97 10/11/21 04:50 Results SECURITY TESTER Labs 09/11/2021--- 4 Blood type:? O positive Antibody screen : Negative Cystic fibrosis: Negative on 07/23/2012-old [facility] Rubella : Immune Varicella: Immune Hepatitis B surface antigen: Nonreactive Hepatitis C antibody: Nonreactive RPR: Nonreactive HIV: Nonreactive Discharge Plan Discharge Patient Disposition: Home Condition: Stable Prescriptions: New hydrocodone-acetaminophen 5-325 mg tablet 1 tab PO Q6H Qty: 25 0RF Rx Instructions: Alternate with ibuprofen docusate sodium 100 mg Capsule 100 mg PO BID PRN (Reason: constipation) Qty: 30 0RF ibuprofen 800 mg tablet 800 mg PO Q8H Qty: 30 0RF Continued prenat.vits,tyrone,[id number]-aqmk-npvxu Tablet 1 tab PO DAILY 0RF Discharge Orders: Discharge Order (Routine); Ordered 10/11/21 Ordered By: Doris Wilder Referrals: Doris Wilder MD [Physician] - Discharge Diet: Regular Discharge Activity: Limit activity as instructed Patient Instructions: Opioid Safety Activity Restrictions/Additional Instructions: No heavy lifting for 6 weeks, pelvic rest for 6 weeks Follow-up with Dr. Fink 2 weeks in 6-week for incision check Emergency room precautions reviewed Discharge Attestations CENTRIFUGE SEPARATOR TENDER Time Spent in Discharge Care*: greater than 30 min Coding Level of Care Code Acute Creel Hand for Chg Fwd Diagnoses Evaluate anatomy not seen on prior sonogram Previous delivery affecting , antepartum O34.219 History of delivery, currently O09.899 Use of medication with teratogenic potential in female of reproductive age Z79.899 Tobacco use affecting , antepartum O99.330 Supervision of high risk , antepartum O09.90 Bicornuate uterus Q51.3 premature rupture of membranes O42.919
--- NOTE | 2021-10-11 11:34 | PC.NURSE ---
1125 PT OUT OF SHOWER, STERISTRIP REMOVED AND TINTURE OF BENZION APPLIED AND NEW STERI STRIPS APPLIED. WENT OVER INCISIONAL CARE WELL HOME CARE INSTRUCTIONS WITH PATIENT.
[2021-10-11 12:07] VITALS: BP 137/87; PULSE 96; RESP 20; TEMP 37.3
[2021-10-11 12:08] VITALS: BP 137/87; PULSE 96; RESP 20; TEMP 37.3
--- NOTE | 2021-10-11 12:09 | PC.NURSE ---
PT IS STAYING TO ROOM IN WITH BABY, AND [facility] IS BRINGING HER MEDICATIONS UP TO OB. PT IS OFFICIALLY DISCHARGED A PATIENT.
== END 2021-10-11 12:10 | disposition home or self-care (01) | DRG 788 ==
LOC: OPOB 06:23 → OBGYN 06:23
PROVIDERS: Admitting Provider Obstetrics & Gynecology; PCP Nurse Practitioner Family; Visit Provider Obstetrics & Gynecology
PROC: 10D00Z1 Extraction of Products of Conception, Low, Open Approach (ICD-10-PCS; CPT 59514; principal; 2021-10-09 04:15)
DX: O60.14X0 Preterm labor third trimester with preterm delivery third trimester, not applicable or unspecified (principal); Z3A.34 34 weeks gestation of pregnancy; Z37.0 Single live birth; O42.013 Preterm premature rupture of membranes, onset of labor within 24 hours of rupture, third trimester; O99.334 Smoking (tobacco) complicating childbirth; O34.03 Maternal care for unspecified congenital malformation of uterus, third trimester; Q51.3 Bicornate uterus; O32.1XX0 Maternal care for breech presentation, not applicable or unspecified; O75.89 Other specified complications of labor and delivery; K21.9 Gastro-esophageal reflux disease without esophagitis; O34.211 Maternal care for low transverse scar from previous cesarean delivery; O35.5XX0 Maternal care for (suspected) damage to fetus by drugs, not applicable or unspecified
CPT/HCPCS: 36415; 51702; 59025; 83986; 84112; 85025; 85027; 87081; 87635; 96372; 99211; J0702; J1200; J2274; J2405; J2765; J3010; J7030

== ENCOUNTER → 2022-01-01 10:40 | Outpatient (BNVA) | payer MEDICAID, SELFPAY | PROVIDERS: PCP Nurse Practitioner Family; Visit Provider Obstetrics & Gynecology | DX: Z12.4 Encounter for screening for malignant neoplasm of cervix (principal) | CPT/HCPCS: 87624 ==

== ENCOUNTER → 2022-03-21 14:26 | Outpatient (BNVA) | payer MEDICAID, SELFPAY | PROVIDERS: PCP Nurse Practitioner Family; Visit Provider Obstetrics & Gynecology | DX: N92.0 Excessive and frequent menstruation with regular cycle (principal) | CPT/HCPCS: 84443; 85025 ==

== ENCOUNTER → 2022-03-29 12:19 | Outpatient (BNVA) | payer MEDICAID, SELFPAY | PROVIDERS: PCP Nurse Practitioner Family; Visit Provider Obstetrics & Gynecology | DX: N92.0 Excessive and frequent menstruation with regular cycle (principal); N83.291 Other ovarian cyst, right side | CPT/HCPCS: 76830 ==

== ENCOUNTER 2022-05-28 09:23 | Inpatient (IN) | payer MEDICAID, SELFPAY ==
[2022-04-29 12:53] VITALS: BMI 25.2
[2022-05-27 13:33] VITALS: BMI 34.0
--- NOTE | 2022-05-27 13:56 | ANES.PREANE2 ---
Pre-Anesthetic Assessment Height/Weight: Height 1.57 m Weight 84.368 kg Preop Diagnosis: AUB, bicornuate uterus Operation Date: 05/28/22 07:00 Proposed Procedures p Total Abdominal Hysterectomy 25706,R10.2,N92.0,Z84.2(Not Applicable) - Saranya David MD Familial anesthetic complications: None Social Tobacco and No alcohol Exam alert, oriented x 3, clear to auscultation bilaterally and regular rate & rhythm Airway Dentition: false Pulmonary None reported CV/HEM None reported None reported Hepatic None reported GI None reported Metabolic None reported Musc/skel None reported Neuropsych None reported Anesthetic Plan ASA status: 1 Anesthesia: General Risk of > 500 ml blood loss (7ml/kg in children): No Medications/Allergies Home Medications Medication Instructions Recorded Confirmed Last Taken Type sertraline 100 mg tablet (Zoloft) 100 mg PO DAILY #14 tabs 01/01/22 05/27/22 05/27/22 Rx Allergies Allergy/AdvReac Type Severity Reaction Status Date / Time codeine Allergy UAX-Fjghxfoaphdof-zsw Verified 05/27/22 13:29 take hydrocodone meperidine [From Demerol] Allergy ADR/ALGY-Hy Verified 05/27/22 13:29 potension [facility] Anesthesia Medical History (Updated 04/30/22 @ 14:57 by Valorie Mendoza) GERD (gastroesophageal reflux disease) Takes medication for this managed by PMD. Has not had an EGD prior. No pertinent past medical history Denies diabetes, asthma, hypertension, seizures, DVT/PE PCP: [facility] Surgical History History of x 3. ----> 2019 -----> 10/09/2021---repeat low transverse delivery by Dr. Fink at [facility]. Dense adhesions of the anterior abdominal wall and onto the uterus as well as dense bladder adhesions. S/P laparoscopic cholecystectomy May 2020 ----performed by Dr. España at [facility] Status post tubal ligation 02/22/2021---laparoscopic bilateral total salpingectomy for sterilization performed by Dr. Fink at [facility]. ---->, Omental adhesions which were taken down, dense additions of uterus onto bladder and anterior abdominal. 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 Normal tubes and ovaries. -----> pathology showed total transection, benign pathology Family History Grandfather Diabetes maternal Grandmother Breast cancer maternal, diagnosed at age 59 Denies family history of Colon cancer Ovarian cancer Heart disease Hyperlipidemia Hypertension Uterine cancer Thyroid condition Stroke Social History Smoking and tobacco status: current every day smoker (1 ppd) Female Reproductive History Date of last menstrual period: 05/24/22 Data Anesthesia Cardiac Studies: No Data to Display
[2022-05-27 14:08] LABS: Basophils % 0.4 %; Eosinophils # 0.1 10^3/uL (0.0-0.8); Eosinophils % 1.3 %; Hematocrit 38.1 % (37.0-47.0); Hemoglobin 13.1 g/dL (11.5-15.3); Lymphocytes # 2.6 10^3/uL (0.8-4.8); Lymphocytes % 29.3 %; Mean Corpuscular HGB Conc 34.4 g/dL (30.0-36.0); Mean Corpuscular Hemoglobin 28.3 pg (28.0-34.0); Mean Corpuscular Volume 82.3 fl (81-99); Mean Platelet Volume 9.2 fL (7.4-10.4); Monocytes # 0.5 10^3/uL (0.2-0.9); Monocytes % 5.3 %; Neutrophils # 5.63 10^3/uL (1.8-7.7); Neutrophils % 63.4 %; Nucleated Red Blood Cells % 0 %; Platelet Count 247 10^3/cmm (130-400); Red Blood Count 4.63 10^6/uL (4.1-5.3); Red Cell Distribution Width 12.3 % (12.1-15.1); White Blood Count 8.9 10^3/uL (4.0-10.0)
[2022-05-27 14:30] LABS: Anion Gap 13.9 (5-19); Blood Urea Nitrogen 11 mg/dL (6-20); Calcium 9.1 mg/dL (8.5-10.5); Carbon Dioxide 23 mmol/L (22-29); Chloride 105 mmol/L (98-107); Glomerular Filtration Rate 96.4 mL/min (90-130); Glucose 100 mg/dL (65-115); Osmolality Calculated 285 mOsm/kg (285-295); Potassium 3.9 mmol/L (3.5-5.1); Sodium 138 mmol/L (136-145)
[2022-05-28] VITALS (29 sets, daily range): BP systolic 99–147; BP diastolic 53–98; PULSE 59–111; RESP 10–22; TEMP 36.3–37.1; O2SAT 90–99
[2022-05-28 06:12] LABS: OR HCG Qualitative Urine Negative (Negative)
[2022-05-28] MEDS: sodium chloride 0.9% 1,000 ML 30 ML IV (06:29)
[2022-05-28] MEDS: acetaminophen 1,000 MG/100 ML PIGGYBACK 400 MG IV (06:29)
[2022-05-28] MEDS: scopolamine 1.5 Patch 1 PATCH TRANSDERMA (06:31)
[2022-05-28] MEDS: phenazopyridine 100 mg Tablet 200 MG PO ×3 (06:32→20:55)
[2022-05-28] MEDS: gabapentin 300 mg Capsule PO (06:32)
[2022-05-28] MEDS: CELEcoxib 200 mg Capsule 400 MG PO (06:32)
--- NOTE | 2022-05-28 06:39 | P.ANESUD_ITS ---
Pre-Anesthetic Update Pre-Anesthetic Assessment: Date of Surgery/Procedure: 05/28/22 Preop Ludy gnosis: AUB, bicornuate uterus Proposed Procedure: Operation Date: 05/28/22 07:00 Proposed Procedures p Total Abdominal Hysterectomy 56765,R10.2,N92.0,Z84.2(Not Applicable) - Saranya David MD Any changes to Pre-Anesthetic Assessment?: No Last Intake: Intake Last Liquid Date 05/27/22 Last Liquid Time 00:00 Last Solid Date 05/27/22 Last Solid Time 20:00 Labs Last 48hrs: Short CBC 05/27/22 Range/Units 13:40 WBC 8.9 (4.0-10.0) 10^3/ uL Hgb 13.1 (11.5-15.3) g/dL Hct 38.1 (37.0-47.0) % MCV 82.3 (81-99) fl Plt Count 247 (130-400) 10^3/c mm Neut % (Auto) 63.4 % Neut # (Auto) 5.63 (1.8-7.7) 10^3/u L BMP 05/27/22 13:40 Sodium 138 Potassium 3.9 Chloride 105 Carbon Dioxide 23 BUN 11 Creatinine 0.7 Glucose 100 Calcium 9.1 Blood Bank 05/27/22 13:40 Blood Type O Positive Rho(D) Type Positive Antibody Screen Negative Vitals: Temperature 97.7 F 05/28/22 06:11 Temperature Source Temporal Artery S can 05/28/22 06:11 Pulse Rate 111 H 05/28/22 06:11 Respiratory Rate 16 05/28/22 06:11 Blood Pressure 120/86 05/28/22 06:11 Blood Pressure Isabell n 97 05/28/22 06:11 Pulse Oximetry 97 05/28/22 06:11 Oxygen Delivery Me thod 05/28/22 06:11 Exam: Pre-Anes Outpt Exam: alert, oriented x 3, clear to auscultation bilaterally and regular rate & rhythm Cardiac Studies: No Data to Display
--- NOTE | 2022-05-28 07:06 | W.PM.OPSUD ---
Surgery/Procedure H&P Update DATE OF PROCEDURE: May 28, 2022 DATE H&P PERFORMED: 05/24/22 H&P UPDATE INFORMATION: I have reviewed H&P completed within last 30 days, I have examined patient prior to procedure and No changes to prior documentation PREOP DIAGNOSIS: AUB, bicornuate uterus PLANNED PROCEDURE: Operation Date: 05/28/22 07:00 Proposed Procedures p Total Abdominal Hysterectomy 20506,R10.2,N92.0,Z84.2(Not Applicable) - Saranya David MD Related Problem List Diagnoses (1) Abnormal uterine bleeding (AUB): (2) Bicornuate uterus:
[2022-05-28] MEDS: ceFAZolin 2,000 MG in sodium chloride 0.9% (plus) 50 ML 100 MG IV ×3 (07:12→22:29)
--- NOTE | 2022-05-28 09:13 | P.OP_ITS ---
Operative Report Date of procedure: May 28, 2022 Pre-op diagnosis: Preop Diagnosis AUB, bicornuate uterus Post-op diagnosis: same Post-op findings: 10 week sized bicornuate uterus. Normal appearing ovaries Procedure done: LOUISA Specimens removed/disposition: uterus to pathology Surgeon: Saranya David Anesthesia: General Estimated blood loss (mL): 400 IV fluids (mL): 1,500 Urine output (mL): 125 Complications: none Findings: 10 week sized uteruse with severe bladder adhesion. Normal appearing uterus and ovaries Condition: stable Disposition: PACU Procedure: The patient was taken to the operating room where general anesthesia was administered and found to be adequate. She was prepped and draped in the normal sterile fashion in the dorsal supine position. A lazaro catheter was placed. A Pfannenstiel skin incision was made and carried down to the underlying layer of fascia. The fascia was nicked in the midline and extended laterally with the Heath scissors. The fascia was then tented up and the rectus muscles dissected off sharply. The rectus muscles were in the midline and the abdomen entered bluntly with the digit. This peritoneal incision was extended superiorly and inferiorly with good visualization of the bladder. The O'Cornel-O'Girard retractor was placed and the bowel packed away. There was adhesions of the omentum to the left side of the uterus. There were severe adhesions of the bladder to the uterus. It was very thickened. The round ligament was suture-ligated and opened. This was performed bilaterally. A window was made medial to the infundibulopelvic ligament and superior to the ovary. The infundibulopelvic ligament was clamped cut and suture-ligated bilaterally. The bladder flap was created sharply with the scalpel and the metzenbaum scissors and the bladder reflected caudally. The uterine arteries a nd cardinal ligaments were then clamped cut and suture-ligated down to the angle of the vagina. The vaginal cuff was clamped and cut and the specimen was removed. The vaginal cuff was closed with 0 Vicryl incorporating the uterosacral ligaments into the lateral aspects of the vaginal cuff. There was excellent hemostasis. The pelvis was irrigated. The O'Cornel-O'Girard retractor as well as the packing was removed. The peritoneum was closed with 3- 0 Monocryl in a running fashion. The fascia was closed with 0 Vicryl in a running fashion with 2 separate sutures overlapping in the midline. The skin was closed with absorbable franky. The patient tolerated the procedure well. Sponge lap and needle counts were correct x2. She was taken to the recovery room in stable condition.
[2022-05-28] MEDS: fentaNYL 50 mcg/mL INJ 2mL IVP (09:47)
[2022-05-28] MEDS: ketorolac 30 mg/mL INJ IVP ×3 (10:03→21:17)
[2022-05-28] MEDS: oxyCODONE-APAP 5-325 mg Tablet PO ×2 (11:22→19:57)
[2022-05-28] MEDS: dextrose 5%-lactated ringers 1,000 ML 125 ML IV ×2 (11:32→19:57)
[2022-05-28] MEDS: HYDROmorphone 1 mg/mL INJ 1 mL 1.5 MG IVP ×2 (13:28→23:59)
--- NOTE | 2022-05-28 16:26 | ANE.PACU2 ---
Inpatient post-anesthesia follow up: Airway intact: Yes Vital signs: Temperature 97.4 F Pulse Rate 72 Respiratory Rate 18 Blood Pressure 119/78 Pulse Oximetry 97 Oxygen Delivery Me thod Nasal Cannula Oxygen Flow Rate 2 Fraction of Inspir ed Oxygen Hydration adequate: Yes Nausea and vomiting: No Pain level: 1 Mental status: Baseline
[2022-05-28] MEDS: docusate sodium 100 mg Capsule PO (17:56)
[2022-05-28] MEDS: nicotine 21 mg Patch 1 PATCH TRANSDERMA (21:17)
[2022-05-29] VITALS (8 sets, daily range): BP systolic 119–123; BP diastolic 75–77; PULSE 88–91; RESP 15–18; TEMP 36.8–37; O2SAT 99
[2022-05-29 04:51] LABS: Hemoglobin 10.2 g/dL (11.5-15.3); Mean Corpuscular HGB Conc 32.9 g/dL (30.0-36.0); Mean Corpuscular Volume 85.2 fl (81-99); Mean Platelet Volume 9.3 fL (7.4-10.4); Platelet Count 199 10^3/cmm (130-400); Red Blood Count 3.64 10^6/uL (4.1-5.3); Red Cell Distribution Width 12.8 % (12.1-15.1); White Blood Count 11.6 10^3/uL (4.0-10.0)
[2022-05-29] MEDS: oxyCODONE-APAP 5-325 mg Tablet PO ×3 (05:09→20:39)
[2022-05-29] MEDS: nicotine 21 mg Patch 1 PATCH TRANSDERMA (08:29)
[2022-05-29] MEDS: phenazopyridine 100 mg Tablet 200 MG PO ×3 (08:29→20:39)
[2022-05-29] MEDS: docusate sodium 100 mg Capsule PO ×2 (08:29→16:40)
[2022-05-29] MEDS: ibuprofen 800 mg tablet PO ×2 (08:29→16:40)
--- NOTE | 2022-05-29 11:20 | P.PN_ITS ---
Vitals/I&O/Wt Last Vital Signs Temp 98.5 F 05/29/22 04:40 Pulse 88 05/29/22 04:40 Resp 18 05/29/22 05:09 BP 119/77 05/29/22 04:40 Pulse Ox 90 05/28/22 17:30 O2 Del Method 05/28/22 17:30 O2 Flow Rate 0.5 05/28/22 13:30 05/28/22 05/29/22 05/29/22 22:59 06:59 14:59 Intake Total 2300 / 5050 797.917 / 5847.917 Output Total 1250 / 2250 650 / 2900 350 / 350 Balance 1050 / 2800 147.917 / 2947.917 -350 / -350 Weight last 48 hrs Weight 186 lb Physical Exam Narrative: The patient is feeling well today. No concerns. Const: COMMON NORMALS: no acute distress, patient oriented x3, no limitations, healthy appearing, alert and well nourished GENERAL APPEARANCE: cooperative, comfortable, well kempt and well developed ORIENTATION/CONSCIOUSNESS: Yes awake, Yes oriented to person, Yes oriented to place and Yes oriented to time Resp: COMMON NORMALS: normal respiratory effort EFFORT & INSPECTION: Yes able to speak in complete sentences GI: COMMON NORMALS: Soft to palpation and non-tender PALPATION: Yes Soft to palpation Extremity: COMMON NORMALS: normal to inspection Neuro: COMMON NORMALS: patient oriented x3 SENSORIUM/ORIENTATION: Yes alert, Yes oriented to person, Yes oriented to place and Yes oriented to time Psych: COMMON NORMALS: mental status grossly normal, Normal thought process present, cooperative, normal affect and speech normal APPEARANCE: Yes well kempt SPEECH: Yes normal speech THOUGHT PROCESS: Normal thought process present Urinary Catheter Management: Riddle: Cath Placed During This Visit: yes, but has since been removed by the nurse Reason for Continuing Indwelling Catheter: Decision to DC Catheter Urinary Catheter Date of Insertion: 05/28/22 Urinary Catheter Time of Insertion: 07:20 Date Urinary Catheter Removed: 05/29/22 Time Urinary Catheter Discontinued: 04:49 Data 05/29/22 04:45 05/27/22 13:40 Micro: Microbiology 05/27/22 13:50 Urine Culture - Final Urine Catheterized A&P Assessment and plan (1) Postoperative state: doing well postoperatively ambulation encouraged today continue to control pain plan for discharge tomorrow Attestations 2 Medical Necessity Statement*: The patient had an abdominal hysterectomy. She will be inpatient at least 2 midnights Coding Level of Care Code Acute Chute Operator for Jimmy Gutierrez Diagnoses Postoperative state Z98.890
[2022-05-29] MEDS: hyDROXYzine 25 mg Capsule 50 MG PO (13:38)
[2022-05-30] MEDS: ibuprofen 800 mg tablet PO ×2 (02:46→09:03)
[2022-05-30 04:41] VITALS: BP 113/75; PULSE 98; RESP 16; TEMP 36.6; O2SAT 98
--- NOTE | 2022-05-30 08:01 | PM.DCS ---
Discharge Providers Date of Admission: 05/28/22 09:23 Date of Discharge: May 30, 2022 Attending Provider at Admission: Saranya David MD Attending Provider at Discharge: Saranya David MD Primary Care Provider: Ray Love NP Diagnoses at Discharge Discharge Diagnosis (1) Postoperative state: Status: Acute Reason for Visit Reason for Visit: N92.0, Z84.2 Hospital Course Hospital Course The patient was admitted for surgery. She did well postoperatively and was ready for discharge on day #2 Physical Exam Narrative: The patient is doing well this morning. She has no concerns. She is ambulating, tolerating a regular diet and pain is well controlled. Const: COMMON NORMALS: no acute distress, patient oriented x3, no limitations, healthy appearing, alert and well nourished GENERAL APPEARANCE: cooperative, comfortable, well kempt and well developed ORIENTATION/CONSCIOUSNESS: Yes awake, Yes oriented to person, Yes oriented to place and Yes oriented to time Resp: COMMON NORMALS: normal respiratory effort EFFORT & INSPECTION: Yes able to speak in complete sentences GI: COMMON NORMALS: Soft to palpation and non-tender PALPATION: Yes Soft to palpation Extremity: COMMON NORMALS: no calf tenderness Neuro: COMMON NORMALS: patient oriented x3 SENSORIUM/ORIENTATION: Yes alert, Yes oriented to person, Yes oriented to place and Yes oriented to time Psych: COMMON NORMALS: mental status grossly normal, Normal thought process present, cooperative, normal affect and speech normal APPEARANCE: Yes well kempt SPEECH: Yes normal speech THOUGHT PROCESS: Normal thought process present Urinary Catheter Management: Riddle: Cath Placed During This Visit: yes, but has since been removed by the nurse Reason for Continuing Indwelling Catheter: Decision to DC Catheter Urinary Catheter Date of Insertion: 05/28/22 Urinary Catheter Time of Insertion: 07:20 Date Urinary Catheter Removed: 05/29/22 Time Urinary Catheter Discontinued: 04:49 Discharge Data Studies Completed and Pending Pending at discharge Category Date Time Status Pathology: Surgical [PTH] Routine Pth 05/28/22 08:33 Received Laboratory Results WBC 11.6 10^3/uL (4.0-10.0) H 05/29/22 04:45 RBC 3.64 10^6/uL (4.1-5.3) L 05/29/22 04:45 Hgb 10.2 g/dL (11.5-15.3) L 05/29/22 04:45 Hct 31.0 % (37.0-47.0) L 05/29/22 04:45 MCV 85.2 fl (81-99) 05/29/22 04:45 MCH 28.0 pg (28.0-34.0) 05/29/22 04:45 MCHC 32.9 g/dL (30.0-36.0) 05/29/22 04:45 RDW 12.8 % (12.1-15.1) 05/29/22 04:45 Plt Count 199 10^3/cmm (130-400) 05/29/22 04:45 MPV 9.3 fL (7.4-10.4) 05/29/22 04:45 Neut % (Auto) 63.4 % 05/27/22 13:40 Lymph % (Auto) 29.3 % 05/27/22 13:40 Harmon % (Auto) 5.3 % 05/27/22 13:40 Eos % (Auto) 1.3 % 05/27/22 13:40 Baso % (Auto) 0.4 % 05/27/22 13:40 Neut # (Auto) 5.63 10^3/uL (1.8-7.7) 05/27/22 13:40 Lymph # (Auto) 2.6 10^3/uL (0.8-4.8) 05/27/22 13:40 Harmon # (Auto) 0.5 10^3/uL (0.2-0.9) 05/27/22 13:40 Eos # (Auto) 0.1 10^3/uL (0.0-0.8) 05/27/22 13:40 Baso # (Auto) 0.0 10^3/uL (0.0-0.1) 05/27/22 13:40 Nucleated RBC % (auto) 0 % 05/27/22 13:40 Nucleated RBCs # 0.0 /100WBC 05/27/22 13:40 Sodium 138 mmol/L (136-145) 05/27/22 13:40 Potassium 3.9 mmol/L (3.5-5.1) 05/27/22 13:40 Chloride 105 mmol/L (98-107) 05/27/22 13:40 Carbon Dioxide 23 mmol/L (22-29) 05/27/22 13:40 Anion Gap 13.9 (5-19) 05/27/22 13:40 BUN 11 mg/dL (6-20) 05/27/22 13:40 Creatinine 0.7 mg/dL (0.5-0.9) 05/27/22 13:40 GFR Calculation 96.4 mL/min (90-130) 05/27/22 13:40 Glucose 100 mg/dL (65-115) 05/27/22 13:40 Calculated Osmolality 285 mOsm/kg (285-295) 05/27/22 13:40 Calcium 9.1 mg/dL (8.5-10.5) 05/27/22 13:40 Urine HCG, Qual Negative (Negative) 05/28/22 06:11 Blood Type O Positive 05/27/22 13:40 Rho(D) Type Positive 05/27/22 13:40 Antibody Screen Negative 05/27/22 13:40 Vitals Last Vital Signs Temp 97.9 F 05/30/22 04:41 Pulse 98 05/30/22 04:41 Resp 16 05/30/22 04:41 BP 113/75 05/30/22 04:41 Pulse Ox 98 05/30/22 04:41 O2 Del Method 05/30/22 04:41 O2 Flow Rate 0.5 05/28/22 13:30 Discharge Plan Discharge Patient Disposition: Home Condition: Stable Prescriptions: New ibuprofen 800 mg Tablet 800 mg PO Q8H Qty: 30 0RF oxycodone-acetaminophen 5-325 mg Tablet 1 tab PO Q4H PRN (Reason: Moderate To Severe Pain) Qty: 30 0RF docusate sodium 100 mg Capsule 100 mg PO BID Qty: 60 0RF Continued sertraline [Zoloft] 100 mg tablet 100 mg PO DAILY Qty: 14 0RF Discharge Orders: Discharge Order (Routine); Ordered 05/30/22 Ordered By: Saranya David Referrals: Saranya David MD [Physician] - 06/03/22 10:30 am Patient Instructions: Ibuprofen (By mouth), Oxycodone/Acetaminophen (By mouth), Laxative, Stool Softeners (By mouth), Hysterectomy (DC), Opioid Safety Discharge Attestations Time Spent in Discharge Care*: less than 30 min Quality Metrics Clinical Quality Measures [ No reported AMI, CVA or VTE this stay] Coding Level of Care Code Acute Chg FW DC note Diagnoses Postoperative state Z98.890
[2022-05-30] MEDS: docusate sodium 100 mg Capsule PO (09:03)
[2022-05-30 10:17] VITALS: BP 111/70; PULSE 78; RESP 15; TEMP 37.1; O2SAT 98
== END 2022-05-30 10:05 | disposition home or self-care (01) | DRG 743 ==
LOC: OBGYN 09:24
PROVIDERS: Admitting Provider Obstetrics & Gynecology; PCP Nurse Practitioner Family; Visit Provider Obstetrics & Gynecology
PROC: 0UT90ZZ Resection of Uterus, Open Approach (ICD-10-PCS; CPT 58150; principal; 2022-05-28 07:00)
DX: N93.9 Abnormal uterine and vaginal bleeding, unspecified (principal); Q51.3 Bicornate uterus; K21.9 Gastro-esophageal reflux disease without esophagitis; F17.200 Nicotine dependence, unspecified, uncomplicated; N73.6 Female pelvic peritoneal adhesions (postinfective)
CPT/HCPCS: 36415; 51702; 80048; 81025; 84703; 85025; 85027; 86850; 86900; 87086; 88307; 90471; 90686; 96374; 96376; J0131; J0690; J1100; J1170; J1885; J2250; J2405; J2704; J2710; J3010; J3490; J7030; J7121

== ENCOUNTER → 2022-06-27 18:31 | Outpatient (BNVA) | payer MEDICAID, SELFPAY | PROVIDERS: PCP Nurse Practitioner Family; Visit Provider Emergency Medicine | DX: R39.9 Unspecified symptoms and signs involving the genitourinary system (principal); R10.32 Left lower quadrant pain | CPT/HCPCS: 81000 ==

== ENCOUNTER → 2023-01-25 11:54 | Outpatient (BNVA) | payer MEDICAID, SELFPAY | PROVIDERS: PCP Nurse Practitioner Family; Visit Provider Emergency Medicine | DX: M25.532 Pain in left wrist (principal) | CPT/HCPCS: 73110 ==

== ENCOUNTER 2023-04-07 12:11 | Emergency (ER) | payer MEDICAID, SELFPAY ==
[2023-04-07 12:14] VITALS: BP 142/96; PULSE 93; RESP 18; TEMP 37; O2SAT 98; BMI 35.0
--- NOTE | 2023-04-07 13:28 | ED_ITS ---
HPI - Abdominal Pain General: Chief Complaint: Abdominal Pain Stated Complaint: abd pain sent by Time Seen by Provider: 04/07/23 13:19 Source: patient Mode of arrival: ambulatory History of Present Illness: 32-year-old female presents to the emergency room with complaints of abdominal discomfort. Began when she woke up this morning. Shoulder lump around the umbilicus. It was worse and tried to order picker/assembler her son it is resolved now but she still has some aching in her stomach. She has not had any vomiting, she continues to have regular bowel movements. MD elicited complaint: abdominal pain Onset (ago): hour(s) Location: None Severity: moderate Quality: cramping Exacerbating factors: nothing Relieving factors: nothing Associated Symptoms: Reports GI cramping, nausea and poor appetite; Denies anorexia, belching, bloating, chills, constipation, diarrhea, dyspepsia, dysuria, fever(s), heartburn, hematochezia, hematuria, hematemesis, loose stools, melena, syncope and vomiting Review of Systems Const: Denies: fever(s) or chills Card: Denies: syncope Resp: Denies: dyspnea GI: Reports: abdominal pain, nausea and GI cramping; Denies: vomiting, hematemesis, heartburn, diarrhea, constipation, bloating, belching, hematochezia or melena : Denies: dysuria, urinary frequency, urinary urgency or hematuria Skin/Breast: Denies: rash or pruritus [facility] [place] [facility] PFSH: Medical History Abnormal uterine bleeding (AUB) Bicornuate uterus Depression GERD (gastroesophageal reflux disease) Takes medication for this managed by PMD. Has not had an EGD prior. No pertinent past medical history Denies diabetes, asthma, hypertension, seizures, DVT/PE [facility]CP: [facility] Surgical History History of x 3. ----> 2019 -----> 10/09/2021---[place] [facility] [place] Dense adhesions of the anterior abdominal wall and onto the uterus as well as dense bladder adhesions. S/P laparoscopic cholecystectomy May 2020 [place] [facility] [place] post tubal ligation 02/22/2021---laparoscopic bilateral total salpingectomy for [place]ilization [place] [facility] [place]>, Omental adhesions which were taken down, dense additions of uterus onto bladder and anterior abdominal. 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 Normal tubes and ovaries. -----> pathology showed total transection, benign pathology Family History Grandfather Diabetes maternal Grandmother Breast cancer maternal, diagnosed at age 59 Denies family history of Colon cancer Ovarian cancer Heart disease Hyperlipidemia Hypertension Uterine cancer Thyroid condition Stroke Social History Smoking and tobacco status: current every day smoker (1 ppd) Physical Exam Const: GENERAL APPEARANCE: cooperative and comfortable ORIENTAT ION/CONSCIOUSNESS: Yes awake, Yes oriented to person, Yes oriented to place and Yes oriented to time HENMT: COMMON NORMALS: normocephalic, atraumatic and hearing grossly normal bilaterally HEAD & SCALP: normocephalic and atraumatic Resp: COMMON NORMALS: normal respiratory effort, No retractions, No use of accessory muscles and clear to auscultation bilaterally AUSCULTATION: clear to auscultation bilaterally Cardio: COMMON NORMALS: regular rate, regular rhythm and No murmurs present (Cardio) RATE: regular rate RHYTHM: regular rhythm GI: COMMON NORMALS: No hepatosplenomegaly present AUSCULTATION: Yes normoactive bowel sounds PALPATION: Yes Tenderness to palpation present (GI), No Guarding due to palpation present (GI) and Yes No hepatosplenomegaly present OTHER: . Per bel occult tenderness. After Valsalva maneuver hernia present easily reducible but tender. No guarding or rebound no peritoneal signs. Extremity: COMMON NORMALS: normal to inspection, capillary refill normal, no clubbing, cyanosis or edema, no calf tenderness and no pedal edema Neuro: SENSORIUM/ORIENTATION: Yes oriented to person, Yes oriented to place and Yes oriented to time Skin: COMMON NORMALS: no rashes or lesions noted GENERAL SKIN EXAM: no rashes or lesions noted Course Vital Signs: Vital signs: Vital Signs Temperature 98.6 F 04/07/23 12:14 Pulse Rate 93 04/07/23 12:14 Respiratory Rate 18 04/07/23 12:14 Blood Pressure 142/96 04/07/23 12:14 Pulse Oximetry 98 04/07/23 12:14 Oxygen Delivery Me thod Room Air 04/07/23 12:14 MDM - Abdominal Pain Medical Decision Making Umbilical hernia reduced at the bedside. Symptoms improved after this was done. There is no evidence of bowel obstruction discharged home refer to outpatient surgery. Medical Records I reviewed the patient's medical records. Lab Data I reviewed the patient's lab results. 04/07/23 13:17 04/07/23 13:17 Labs/Radiology: Laboratory Results WBC 10.58 10^3/uL (3.29-11.43) 04/07/23 13:17 RBC 5.06 10^6/uL (3.85-5.65) 04/07/23 13:17 Hgb 14.70 g/dL (11.27-16.99) 04/07/23 13:17 Hct 42.0 % (36-47) 04/07/23 13:17 MCV 83.0 fl (85-98) L 04/07/23 13:17 MCH 29.1 pg (27-33) 04/07/23 13:17 MCHC 35.0 g/dL (30-55) 04/07/23 13:17 RDW 12.2 % (12.1-15.1) 04/07/23 13:17 Plt Count 260 10^3/cmm (157-399) 04/07/23 13:17 MPV 9.3 fL (7.4-10.4) 04/07/23 13:17 Neut % (Auto) 63.7 % 04/07/23 13:17 Lymph % (Auto) 29.5 % 04/07/23 13:17 [place] % (Auto) 4.1 % 04/07/23 13:17 Eos % (Auto) 2.0 % 04/07/23 13:17 Baso % (Auto) 0.4 % 04/07/23 13:17 Neut # (Auto) 6.75 10^3/uL (1.8-7.7) 04/07/23 13:17 Lymph # (Auto) 3.1 10^3/uL (0.8-4.8) 04/07/23 13:17 [place] # (Auto) 0.4 10^3/uL (0.2-0.9) 04/07/23 13:17 Eos # (Auto) 0.2 10^3/uL (0.0-0.8) 04/07/23 13:17 Baso # (Auto) 0.0 10^3/uL (0.0-0.1) 04/07/23 13:17 Nucleated RBC % (auto) 0 % 04/07/23 13:17 Nucleated RBCs # 0.0 /100WBC 04/07/23 13:17 Sodium 138 mmol/L (136-145) 04/07/23 13:17 Potassium 4.0 mmol/L (3.5-5.1) 04/07/23 13:17 Chloride 105 mmol/L (98-107) 04/07/23 13:17 Carbon Dioxide 25 mmol/L (22-29) 04/07/23 13:17 Anion Gap 12.0 (5-19) 04/07/23 13:17 BUN 10 mg/dL (6-20) 04/07/23 13:17 Creatinine 0.6 mg/dL (0.5-0.9) 04/07/23 13:17 GFR Calculation 115.1 mL/min (90-130) 04/07/23 13:17 Glucose 103 mg/dL (65-115) 04/07/23 13:17 Calculated Osmolality 285 mOsm/kg (285-295) 04/07/23 13:17 Lactic Acid 1.1 mmol/L (0.5-2.2) 04/07/23 13:17 Calcium 9.1 mg/dL (8.5-10.5) 04/07/23 13:17 Total Bilirubin 0.2 mg/dL (0.15-1.2) 04/07/23 13:17 AST 13 U/L (0-32) 04/07/23 13:17 ALT 16 U/L (0-33) 04/07/23 13:17 Alkaline Phosphatase 98 U/L (35-105) 04/07/23 13:17 Total Protein 7.0 g/dL (6.6-8.7) 04/07/23 13:17 Albumin 4.2 g/dL (3.5-5.2) 04/07/23 13:17 Globulin 2.8 g/dL (1.3-4.6) 04/07/23 13:17 HCG, Qual Negative (Negative) 04/07/23 13:17 Urine Color Yellow (Yellow) 04/07/23 14:09 Urine Appearance Sl hazy (CLEAR) A 04/07/23 14:09 Urine pH 7 (5-7) 04/07/23 14:09 Ur Specific [place] 1.015 (1.005-1.030) 04/07/23 14:09 Urine Protein Neg (Negative) 04/07/23 14:09 Urine Glucose (UA) Norm (Normal) 04/07/23 14:09 Urine Ketones Negative (Negative) 04/07/23 14:09 Urine Blood Neg (Negative) 04/07/23 14:09 Urine Nitrate Negative (Negative) 04/07/23 14:09 Urine Bilirubin Neg (Negative) 04/07/23 14:09 Urine Urobilinogen Norm mg/dL (Negative) 04/07/23 14:09 Ur Leukocyte Esterase Negative (Negative) 04/07/23 14:09 Urine RBC 0-4 /hpf (0-2) H 04/07/23 14:09 Urine WBC 0-4 /hpf (0-5) H 04/07/23 14:09 Ur Squamous Epith Cells 0-4 /hpf (0-5) H 04/07/23 14:09 Amorphous Sediment Not Reportable 04/07/23 14:09 Urine Bacteria Trace /hpf (NONE) 04/07/23 14:09 All radiology interpretation(s) finalized by discharge Discharge Plan Discharge Patient Disposition: Home Clinical Impression: Hernia, umbilical Condition: Stable Prescriptions: No Action No Known Home Medications Discharge Orders: Discharge ED (Routine); Ordered 04/07/23 Ordered By: Lorenzo Brooks Referrals: Michael Escobedo MD [Primary Care Provider] - Discharge Diet: Usual diet Discharge Activity: Limit activity as instructed Patient Instructions: Umbilical Hernia (ED), Opioid Safety, Pain Management Activity Restrictions/Additional Instructions: Case management will refer you to general surgery. Coding Level of Care Code ED Regional Planner for Jimmy Gutierrez
[2023-04-07 13:56] LABS: Basophils % 0.4 %; Eosinophils # 0.2 10^3/uL (0.0-0.8); Lymphocytes # 3.1 10^3/uL (0.8-4.8); Lymphocytes % 29.5 %; Mean Corpuscular Hemoglobin 29.1 pg (27-33); Mean Platelet Volume 9.3 fL (7.4-10.4); Monocytes # 0.4 10^3/uL (0.2-0.9); Monocytes % 4.1 %; Neutrophils # 6.75 10^3/uL (1.8-7.7); Neutrophils % 63.7 %; Nucleated Red Blood Cells % 0 %; Platelet Count 260 10^3/cmm (157-399); Red Blood Count 5.06 10^6/uL (3.85-5.65); Red Cell Distribution Width 12.2 % (12.1-15.1); White Blood Count 10.58 10^3/uL (3.29-11.43)
[2023-04-07 14:12] LABS: HCG, Serum Qual Negative (Negative)
[2023-04-07 14:17] LABS: Alanine Aminotransferase 16 U/L (0-33); Albumin Level 4.2 g/dL (3.5-5.2); Alkaline Phosphatase 98 U/L (35-105); Aspartate Amino Transferase 13 U/L (0-32); Blood Urea Nitrogen 10 mg/dL (6-20); Calcium 9.1 mg/dL (8.5-10.5); Carbon Dioxide 25 mmol/L (22-29); Chloride 105 mmol/L (98-107); Globulin 2.8 g/dL (1.3-4.6); Glomerular Filtration Rate 115.1 mL/min (90-130); Glucose 103 mg/dL (65-115); Osmolality Calculated 285 mOsm/kg (285-295); Sodium 138 mmol/L (136-145); Total Bilirubin 0.2 mg/dL (0.15-1.2)
[2023-04-07 14:18] LABS: Lactic Sepsis W/Reflex 1.1 mmol/L (0.5-2.2)
[2023-04-07 14:40] LABS: Add Urine Microscopic? YES; Bilirubin Urine Neg (Negative); Blood Urine Neg (Negative); Glucose Urine UA Norm (Normal); Ketones Urine Negative (Negative); Leukocyte Esterase Urine Negative (Negative); Nitrate Urine Negative (Negative); Protein Urine Neg (Negative); Specific Gravity, Urine 1.015 (1.005-1.030); Urine Appearance SL Hazy (CLEAR); Urine Color Yellow (Yellow); Urobilinogen Urine Norm (Negative); pH Urine 7 (5-7)
[2023-04-07 14:41] LABS: Add Urine Culture? No; Bacteria Urine TRACE /hpf; RBC Urine 0-4 /hpf (0-2); Squamous Epithelial Cell Urine 0-4 /hpf (0-5); WBC Urine 0-4 /hpf (0-5)
--- NOTE | 2023-04-07 15:07 | PC.SOCIAL ---
General Surgery Referral Referral message sent to clinic at this time, clinic will contact patient with appt date/time.
== END 2023-04-07 15:03 | disposition home or self-care (01) ==
PROVIDERS: Physician Assistant; Emergency Provider Family Medicine; PCP Family Medicine
DX: K42.9 Umbilical hernia without obstruction or gangrene (principal); F17.210 Nicotine dependence, cigarettes, uncomplicated
CPT/HCPCS: 36415; 80053; 81001; 83605; 84703; 85025; 99283

== ENCOUNTER 2023-05-28 06:16 | Day surgery (SDC) | payer MEDICAID, SELFPAY ==
[2023-05-28] VITALS (11 sets, daily range): BP systolic 113–179; BP diastolic 76–101; PULSE 80–119; RESP 16–18; TEMP 36.1–36.3; O2SAT 93–99; BMI 31.6
--- NOTE | 2023-05-28 06:00 | P.HP_ITS ---
Same Day Surgery H&P Indication for Procedure/HPI DATE OF PROCEDURE: May 28, 2023 CHIEF COMPLAINT/INDICATIONFOR SURGICAL PROCEDURE: ventral incisional hernia PREOP DIAGNOSIS: ventral hernia PLANNED PROCEDURE: Operation Date: 05/28/23 08:00 Proposed Procedures p : [id number] Lap possible open ventral hernia repair with mesh K43.2(Not Applicable) - Keenan Ortiz MD Medications/Allergies* Home Medications Medication Instructions Recorded Confirmed Type No Known Home Medications 07/12/22 05/27/23 History Allergies/Adverse Reactions Allergy/AdvReac Type Severity Reaction Status Date / Time codeine Allergy [id number]-[id number] Verified 05/27/23 11:17 take hydrocodone meperidine [From Demerol] Allergy ADR/ALGY-Hy Verified 05/27/23 11:17 potension Pertinent History/Comorbid Conditions* Medical History (Updated 04/15/23 @ 00:01 by QAMAR Webster) Abnormal uterine bleeding (AUB) Bicornuate uterus Depression GERD (gastroesophageal reflux disease) Takes medication for this managed by PMD. Has not had an EGD prior. No pertinent past medical history Denies diabetes, asthma, hypertension, seizures, DVT/PE PCP: [facility] Surgical History (Updated 05/31/22 @ 00:00 by QAMAR Webster) History of x 3. ----> 2019 -----> 10/09/2021---repeat low transverse delivery [place]. Fink [place] [facility] [place] Dense adhesions of the anterior abdominal wall and onto the uterus as well as dense bladder adhesions. S/P laparoscopic cholecystectomy May 2020 ----performed by Dr. España at [facility] [place] Status post tubal ligation 02/22/2021---laparoscopic bilateral total salpingectomy for sterilization performed by Dr. Fink at [facility] [place]. ---->, Omental adhesions which were taken down, dense additions of uterus onto bladder and anterior abdominal. 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 Normal tubes and ovaries. -----> pathology showed total transection, benign pathology Family History (Updated 01/03/21 @ 10:04 by Isabella Guardado, ARIADNA) Diabetes Grandfather maternal Breast cancer Grandmother maternal, diagnosed at age 59 Denies family history of Colon cancer Ovarian cancer Heart disease Hyperlipidemia Hypertension Uterine cancer Thyroid disease Stroke Social History Smoking and tobacco/nicotine status: current every day tobacco/nicotine user (1 ppd) Alcohol intake: never Pertinent Exam Findings alert, oriented x 3, clear to auscultation bilaterally and regular rate & rhythm Recommendations Surgery/Procedure today Coding Level of Care Code Acute Code for Chg Fwd Diagnoses
[2023-05-28] MEDS: sodium chloride 0.9% 1,000 ML 30 ML IV (06:35)
--- NOTE | 2023-05-28 06:59 | P.ANESASSM_ITS ---
Pre-Anesthetic Assessment Height/Weight: Height 1.6 m Weight 81.193 kg Temp Pulse Resp BP Pulse Ox O2 Del Method 97.0 F L 119 H 18 179/98 99 Room Air 05/28/23 06:28 05/28/23 06:28 05/28/23 06:28 05/28/23 06:28 05/28/23 06:28 05/28/23 06:28 Preop Diagnosis: ventral hernia Operation Date: 05/28/23 08:00 Proposed Procedures p : [id number] Lap possible open ventral hernia repair with mesh K43.2(Not Applicable) - Keenan Ortiz MD Familial anesthetic complications: None Was Beta Froy taken within 24 hours: N/A Was Clonidine taken within 24 hours: N/A Last intake: Intake Last Liquid Date 05/27/23 Last Liquid Time 22:30 Last Solid Date 05/27/23 Last Solid Time 22:30 Social Tobacco and No alcohol Exam alert, oriented x 3, clear to auscultation bilaterally and regular rate & rhythm Airway Mallampati: Class II Dentition: false Metabolic obese Anesthetic Plan ASA status: 2 Anesthesia: General Risk of > 500 ml blood loss (7ml/kg in children): No Medications/Allergies Home Medications Medication Instructions Recorded Confirmed Last Taken Type No Known Home Medications 07/12/22 05/28/23 Unknown History Allergies Allergy/AdvReac Type Severity Reaction Status Date / Time codeine Allergy [id number]-ega Verified 05/28/23 06:25 take hydrocodone meperidine [From Demerol] Allergy ADR/ALGY-Hy Verified 05/28/23 06:25 potension Current Medications Generic Name Dose Route Start Last Admin Trade Name Andrewq PRN Reason Stop Dose Admin Sodium Chloride 1,000 mls @ 30 mls/hr 05/28/23 06:30 05/28/23 06:35 Sodium Chloride 0.9% IV 05/29/23 06:29 30 mls/hr .Q24H ROBEL Administration PFSH Anesthesia Medical History (Updated 04/15/23 @ 00:01 by QAMAR Webster) Abnormal uterine bleeding (AUB) Bicornuate uterus Depression GERD (gastroesophageal reflux disease) Takes medication for this managed by PMD. Has not had an EGD prior. No pertinent past medical history Denies diabetes, asthma, hypertension, seizures, DVT/PE PCP: [facility] Surgical History (Updated 04/11/23 @ 09:43 by CHELSY Duron) History of x 3. ----> 2019 -----> 10/09/2021---repeat low transverse delivery [place]. Fink [place] [facility] [place] Dense adhesions of the anterior abdominal wall and onto the uterus as well as dense bladder adhesions. S/P laparoscopic cholecystectomy May 2020 ----performed by Dr. España at [facility] [place] Status post tubal ligation 02/22/2021---laparoscopic bilateral total salpingectomy for sterilization performed by Dr. Fink [place] [facility] [place]. ---->, Omental adhesions which were taken down, dense additions of uterus onto bladder and anterior abdominal. 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 Normal tubes and ovaries. -----> pathology showed total transection, benign pathology Family History Grandfather Diabetes maternal Grandmother Breast cancer maternal, diagnosed at age 59 Denies family history of Colon cancer Ovarian cancer Heart disease Hyperlipidemia Hypertension Uterine cancer Thyroid condition Stroke Social History (Updated 04/11/23 @ 09:43 by CHELSY Duron) Smoking and tobacco/nicotine status: current every day tobacco/nicotine user (1 ppd) Alcohol intake: never Data Anesthesia Cardiac Studies: No Data to Display
[2023-05-28] MEDS: ceFAZolin 2,000 MG in sodium chloride 0.9% (plus) 50 ML 100 MG IV (08:40)
[2023-05-28] MEDS: lidocaine-epi 1% 20 mL INJ INJECTION (09:57)
[2023-05-28] MEDS: BUPivacaine 0.25% INJ 10 mL INJECTION (09:58)
--- NOTE | 2023-05-28 10:00 | P.OP_ITS ---
Operative Report Date of procedure: May 28, 2023 Pre-op diagnosis: Ventral incisional hernia Post-op diagnosis: Ventral incisional hernia, intra-abdominal adhesions Procedure done: Repair about 2.5 cm ventral incisional hernia, extensive lysis of additions. Implants: 4.5 inches Ventrio mesh Surgeon: Keenan Ortiz MD Durability Engineer: MIKAL OR Staff Estimated blood loss: 5cc Complications: None Findings: 2.5 cm ventral incisional hernia containing omentum, which was incarcerated. Significant additions from the omental and mesenteric fat to the anterior abdominal wall at the level of the midline below the umbilicus. Brief History: 33-year-old female with a ventral incisional hernia who presented to my clinic for evaluation for repair. After a discussion of all risk and benefits as documented in my preop note we have decided to proceed with laparoscopic IPOM repair. Procedure: Patient was brought into the OR, she was placed in the supine position, general anesthesia was given. The abdomen was prepped and draped in the usual sterile fashion. Timeout was conducted. The abdomen was accessed via 5mm optical trocar at Topete's point. Pneumoperitoneum was achieved and no evidence of visceral injury was noted, additional 12 mm trocar was placed in the left flank and another 5 mm trocar in the left lower quadrant position. The hernia was identified anterior abdominal wall, incarcerated omentum was noted, the omentum was reduced with a mix of sharp and blunt dissection, taking careful consideration of not injuring Any underlying structures. Once hernia was reduced there was noted that there was significant additions from the omental fat and the mesenteric fat to the anterior abdominal wall in the infraumbilical midline, therefore I proceeded with sharp dissection of this additions. I then proceeded to take down the falciform ligament from the anterior abdominal wall to allow for a clear path for the mesh to be fixed. A 4.[address] mesh was inserted into the abdomen, the positioning system suture was then pulled out through the umbilicus. The mesh was then fixed to the anterior abdominal wall using secure strap. The skeleton of the mesh was then removed via the 12 mm port. The abdomen was then completely deflated for about 2 minutes, and then reinsufflated to ensure adequate hemostasis. Hemostasis was verified. I then proceeded to close the 12 mm trocar using a Arthur-Ranjana suture passer with a 0 Vicryl, this was done under direct visualization. The pneumoperitoneum was evacuated and the remaining trocars were removed. The wounds were closed with #4-0 Monocryl, Dermabond was applied over the wounds. At the end of the procedure all counts were correct, the patient tolerated well the procedure, was extubated and transferred to the PACU in stable condition.
[2023-05-28] MEDS: fentaNYL 50 mcg/mL INJ 2mL IVP (10:15)
[2023-05-28] MEDS: HYDROmorphone 1 mg/mL INJ 1 mL 0.5 MG IVP (10:20)
[2023-05-28] MEDS: HYDROcodone-acetaminophen 5-325 mg Tablet 1 TAB PO (10:55)
[2023-05-28] MEDS: morphine 4 mg/mL SDV 1 mL IVP (10:55)
--- NOTE | 2023-05-28 11:45 | ANE.PACU2 ---
Inpatient post-anesthesia follow up: Airway intact: Yes Vital signs: Temperature 97.4 F Pulse Rate 95 Respiratory Rate 16 Blood Pressure 113/92 Pulse Oximetry 93 Oxygen Delivery Me thod Room Air Oxygen Flow Rate 0.5 Fraction of Inspir ed Oxygen Hydration adequate: Yes Nausea and vomiting: No Pain level: 1 Mental status: Baseline
== END 2023-05-28 11:44 | disposition home or self-care (01) ==
PROVIDERS: PCP Family Medicine; Visit Provider Surgery
PROC: 0WQF4ZZ Repair Abdominal Wall, Percutaneous Endoscopic Approach (ICD-10-PCS; CPT 49592; principal; 2023-05-28 07:50)
DX: K43.0 Incisional hernia with obstruction, without gangrene (principal); K66.0 Peritoneal adhesions (postprocedural) (postinfection); F17.200 Nicotine dependence, unspecified, uncomplicated
CPT/HCPCS: 49592; C1781; J0131; J0690; J1100; J1170; J1885; J2250; J2270; J2405; J2704; J3010; J3490; J7030

== ENCOUNTER → 2024-11-22 10:18 | Outpatient (BNVA) | payer MEDICAID, SELFPAY | PROVIDERS: PCP Clinical Nurse Specialist Adult Health; Visit Provider Clinical Nurse Specialist Adult Health | DX: M54.50 Low back pain, unspecified (principal); M25.50 Pain in unspecified joint; R23.8 Other skin changes; G47.33 Obstructive sleep apnea (adult) (pediatric) | CPT/HCPCS: 80053; 80061; 81003; 83735; 84443; 85025; 85651; 86140; 86160; 86162; 86235; 86255; 86376; 86431; 86618; 86666; 86757 ==

== ENCOUNTER → 2025-03-25 13:28 | Outpatient (BNVA) | payer MEDICAID, SELFPAY | PROVIDERS: PCP Clinical Nurse Specialist Adult Health | DX: Z20.822 Contact with and (suspected) exposure to COVID-19 (principal) | CPT/HCPCS: 87426 ==

== ENCOUNTER 2025-03-29 12:18 | Outpatient (CLI) | payer MEDICAID, SELFPAY ==
--- NOTE | 2025-03-29 12:26 | XR_ITS ---
WS: [id number] XR cervical spine 3V* [id number] REASON FOR EXAM: M54.2 - Cervicalgia FINDINGS: Mild straightening of the normal lordosis. No compression deformity or focal lesion of the cervical vertebrae. Normal odontoid. Intervertebral disc spaces are intact and relatively well preserved. Normal facet joints. XR/XR cervical spine 3V* [id number] IMPRESSION: Mild alteration of cervical curvature otherwise unremarkable.
== END 2025-03-29 12:19 | disposition home or self-care (01) ==
LOC: RAD 12:20
PROVIDERS: PCP Clinical Nurse Specialist Adult Health; Visit Provider Clinical Nurse Specialist Adult Health
DX: M54.2 Cervicalgia (principal)
CPT/HCPCS: 72040

== ENCOUNTER → 2025-04-19 10:29 | Outpatient (BNVA) | payer MEDICAID, SELFPAY | PROVIDERS: PCP Clinical Nurse Specialist Adult Health; Visit Provider Orthopaedic Surgery | DX: M54.12 Radiculopathy, cervical region (principal) | CPT/HCPCS: 72050 ==